=== PATIENT | male | born 1950 | race Caucasian/White ===

== ENCOUNTER → 2020-05-25 07:47 | Outpatient (BNVA) | payer MEDICARE, SELFPAY | PROVIDERS: PCP Family Medicine; Referring Provider Family Medicine; Visit Provider Student in an Organized Health Care Education/Training Program | DX: Z76.89 Persons encountering health services in other specified circumstances (principal) ==

== ENCOUNTER 2024-05-19 13:32 | Outpatient (AMB) | payer BC, MEDICARE, SELFPAY ==
[2024-05-19 13:33] VITALS: BP 120/72; PULSE 68; BMI 29.2
--- NOTE | 2024-05-19 13:33 | MHC.OFFVIS ---
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 Intake Note: New dx PVC's getting palpitations at night and low heart rate at night in the 40's Client Service And Consulting Manager Required: No Allergies amoxicillin [From Augmentin] Allergy (Verified 05/25/20 08:02) Swelling clavulanic acid [From Augmentin] Allergy (Verified 05/25/20 08:02) Swelling montelukast [From Singulair] Allergy (Verified 05/25/20 08:02) itching Medication List - Last Reconciled 05/19/24 by Hood Villa MD budesonide-formoterol 160-4.5 mcg/actuation (Symbicort) 2 puffs inhalation BID cholecalciferol (vitamin D3) 50 mcg PO DAILY eszopiclone (Lunesta) 1 mg PO BEDTIME fexofenadine (Michelle Allergy) 180 mg PO DAILY ketotifen fumarate 0.025%(0.035%) (Allergy Eye (ketotifen)) 1 drp ophthalmic (eye) BID multivitamin 1 tab PO DAILY omeprazole 10 mg PO DAILY tamsulosin 0.4 mg PO BEDTIME HPI Comments Details: Thank you for referring Diana in cardiology consultation today for abnormal EKG consistent with PVCs and enlarged thoracic aorta. Markedly 73-year-old pleasant man with no significant past history of hypertension, diabetes, vascular disease. He said he was recently diagnose during workup to have enlarged thoracic aorta up to 4 cm. However reviewing his chart back he says this has gone back up to 2015. More or less the enlarged thoracic aorta has remained stable. He did see Dr. Palencia and [facility] from Cardiothoracic Surgical perspective for evaluation of ascending aortic enlargement. He was told conservative follow-up at this point in time. He denies any cardiac symptoms but since been told about this he has become lumbar anxious. He has been noticing some palpitations in his chest. Occasionally feels chest pain but this is not exertional in nature. During 1 of the endoscopies he was told he had irregular heartbeat and was advised to seek a cardiac opinion. He is not sure if he was had PVCs in the past. However since been told he has become more aware of this as well. He denies any prior coronary artery disease. He had echocardiogram done recently had shown preserved LV ejection fraction without any major valvular abnormalities. He denies any lightheadedness, syncope. Denies any heart failure symptoms. [facility] Surgical History History of cholecystectomy Family History Mother Diabetes Hypertension Father Diabetes Hypertension Heart disease Social History Household Members: Spouse Are you a primary career placement specialist to a significant other at home: No Do you presently have visiting nurse or other home services: No 75 years or older and lives alone: No Alcohol intake: former Year quit: Quit Review of Systems Const Denies chills, Denies daytime sleepiness, Denies fatigue, Denies fever(s), Denies frequent falls, Denies poor appetite, Denies snoring, Denies stops breathing during sleep, Denies weakness, Denies weight gain and Denies weight loss Eyes Denies loss of vision ENT Denies dizziness and Denies hearing loss Card Denies chest pain, Denies claudication, Denies leg edema, Denies lightheadedness, Denies palpitations, Denies dyspnea, Denies dyspnea on exertion and Denies orthopnea Resp Denies cough, Denies excessive phlegm production, Denies dyspnea, Denies dyspnea on exertion, Denies snoring and Denies wheezing GI Denies abdominal pain, Denies hematochezia, Denies change in bowel habits, Denies nausea and Denies vomiting Denies dysuria and Denies urinary frequency Musc Denies arthralgias, Denies muscle weakness, Denies numbness and Denies other (frequent falls) Skin/Breast Denies nail changes and Denies rash Neuro Denies Abnormal speech present, Denies dizziness, Denies frequent falls, Denies loss of vision, Denies memory loss, Denies numbness and Denies weakness Psych Denies depression and Denies memory loss Endo Denies fatigue and Denies palpitations Rusty/Lymph Reports easy bruising and Reports other (anemia) Aller/Immun Denies wheezing Physical Exam Vital Signs: Last Vital Signs Pulse 68 05/19/24 13:33 BP 120/72 05/19/24 13:33 BMI result Body Mass Index 29.2 Const General: cooperative, comfortable, no acute distress, alert, awake and Physically active Nutritional Appearance: overweight Orientation/consciousness: patient oriented x3 Limitations: no limitations HEENT Head: Yes normocephalic and Yes atraumatic Neck Neck: Yes trachea midline, Yes supple and Yes no JVD Resp Effort & Inspection: normal respiratory effort Auscultation: clear to auscultation bilaterally Cardio Jugular venous distension: no JVD Palpation: normal PMI Rate: regular rate Rhythm: abnormal rhythm with ectopic beats Heart sounds: S1 normal heart sound present, S2 normal heart sound present, no click, no gallops, no murmurs and no rubs GI Auscultation: normal bowel sounds Skin General skin exam: no rashes or lesions noted Neuro General: patient oriented x3 and no focal motor deficits Speech: No Abnormal speech present Psych Appearance: grossly normal Assessment & Plan Assessment & Plan (1) PVCs (premature ventricular contractions): Code(s): I49.3 - Ventricular premature depolarization Category: Medical Plan: Patient maybe getting symptomatic PVCs now ever since been told that he had irregular heartbeat. However he is noticing that sometimes his heart rate is on the slow side. He also has atypical chest pain. His echocardiogram shows normal LV ejection fraction. Although given his age I would like to rule out myocardial ischemia as this could also present with symptoms and signs of PVCs. This was discussed with him. Also suggest a Holter monitor to assess for frequency of PVCs. If he has normal structure of the heart with less than 10% frequency of PVCs would probably manage it without any pharmacotherapy given his baseline bradycardia. Holter monitor will also have but overall baseline and average heart rate through the 48 hours. He understands management well. Advised stress mitigation strategies. Avoidance of stimulants was discussed. Further treatment based on the finding of the test results. (2) Enlarged thoracic aorta: Code(s): I77.89 - Other specified disorders of arteries and arterioles Category: Medical Plan: Mildly enlarged thoracic aorta which seems to have remained stable for many years. Agree with Cardiothoracic surgery as to conservative management at this point time. Advised to avoid sudden strenuous isometric exercise. He understands agrees. Follow-up echocardiogram on a yearly basis. Consider lipid modification with target goal LDL less than 100 mg/dL. Blood pressure is currently well optimized. Will follow up in the clinic in 1 year's time, sooner p.r.n.. Thank you for allowing me to partake in his care Orders: Orders CA stress test Today I49.3 - Ventricular premature depolarization NM cardiolite stress test 2 Weeks I49.3 - Ventricular premature depolarization, R07.9 - Chest pain, unspecified ECG holter monitor 48 hour Today I49.3 - Ventricular premature depolarization Coding Level of Care Code New Pt Level 4 (37949) Diagnoses PVCs (premature ventricular contractions) I49.3 Enlarged thoracic aorta I77.89
== END 2024-05-19 14:19 | disposition home or self-care (01) ==
PROVIDERS: Visit Provider Internal Medicine Cardiovascular Disease
DX: I49.3 Ventricular premature depolarization (principal); I77.89 Other specified disorders of arteries and arterioles
CPT/HCPCS: 99204

== ENCOUNTER → 2024-05-19 13:32 | Outpatient (BNVA) | payer OTHER, MEDICARE, SELFPAY | PROVIDERS: Visit Provider Internal Medicine Cardiovascular Disease ==

== ENCOUNTER → 2024-06-17 12:35 | Outpatient (REF) | payer BC, MEDICARE, SELFPAY ==
--- NOTE | 2024-06-17 12:37 | HM_ITS ---
Conclusion: 1. Patient was monitored for total period of 5 days and 21 hours 2. Baseline was normal sinus rhythm with average heart of 59 beats per minute 3. Frequent sinus bradycardia noted with 51% of time heart rate below 60 beats per minute with no significant pauses 4. Frequent mostly isolated PVCs noted with total burden of 4.4% 5. Frequent isolated PACs noted with total burden of 1.4% 6. Patient marked 4 events with symptoms of palpitations correlated with isolated PACs and PVCs MTDD
== END ==
LOC: HO.CARD 12:35
PROVIDERS: PCP Family Medicine; Visit Provider Internal Medicine Cardiovascular Disease
DX: I49.3 Ventricular premature depolarization (principal)
CPT/HCPCS: 93225

== ENCOUNTER → 2024-06-17 12:37 | Outpatient (BNV) | payer BC, MEDICARE, SELFPAY | PROVIDERS: PCP Family Medicine; Visit Provider Internal Medicine Cardiovascular Disease | DX: I49.1 Atrial premature depolarization (principal); I49.3 Ventricular premature depolarization | CPT/HCPCS: 93244 ==

== ENCOUNTER → 2024-07-28 08:09 | Outpatient (REF) | payer BC, MEDICARE, SELFPAY ==
--- NOTE | ~2024-07-28 | NM_ITS ---
EXERCISE MYOCARDIAL PERFUSION STUDY INDICATION: Chest pain to evaluate for myocardial ischemia TECHNIQUE: The patient was brought in for an exercise perfusion study on 07/28/2024. Patient performed exercise as per Eliseo protocol and was injected 25 mCi of sestamibi once target heart rate was achieved. Images were obtained using the SPECT gamma camera interlaced with the gating device. Images were obtained in supine position. Resting perfusion study was performed on 07/29/2024. Patient was administered 25 mCi of sestamibi intravenously at rest. Images were then obtained in supine position. Images obtained without without CT attenuation. Total DLP 102 mGy-cm. Images were processed with the software and compared side to side in short axis, horizontal long axis and vertical long axis views. FINDINGS: Raw images were reviewed The stress perfusion study showed nonattenuated images show mildly reduced uptake in the basal inferior mid inferior wall of the LV myocardium. Remainder of the LV myocardium is normally perfused. Attenuated corrected images show mildly reduced uptake in the apex of the LV myocardium. The gated study shows normal LV systolic function with calculated LVEF of 60%. LV cavity is normal in size. The gated study shows normal systolic wall thickening and contraction of segments. Resting study shows nontender images show improved uptake in the basal and mid inferior wall of the LV myocardium. Attenuated corrected images show mildly reduced uptake in the apex of the LV myocardium.. Gating at rest reveals normal systolic wall motion with ejection fraction at 58%. The findings are consistent with equivocal for mild intensity ischemia basal inferior wall. NM/NM cardiolite stress test IMPRESSION: 1. Myocardial perfusion imaging study shows equivoval basal and mid inferior wall ischemia of mild intensity in RCA territory. 2. Gated LVEF is 60%. 3. Transient ischemic dilatation not present. EKG revealed positive for ischemia. Electronically signed by: Hood Villa MD 07/30/2024 08:20 AM [facility]
--- NOTE | 2024-07-28 08:12 | CA_ITS ---
Acquisition Time: 2024-07-28 08:46:23 Total Exercise Time: 00:07:25 Test Indications: CP, PVC'S Medications: SEE H Protocol: MATTY Max HR: 150 BPM 78% of Pred: 191 BPM Max BP: 160/070 mmHG Max Work Load: 7.1 METS Exercise stress test with exercise 7 min 25 sec of Matty protocol ( stage 2 held) achieving 101% MPHR, with reports of sever SOB, no chest discomfort, with isolated PVCs and PACs, with normotensive reponse to exercise. Downward sloping ST depression inferiorly and laterally, gradually improving in recovery, meeting criteria for ischemia. In recovery, SOB resolved. Nuclear images pending. Test reviewed with Dr. Villa. Referred By: Hood Villa Overread By: GENESIS LEE
--- OUTSIDE RECORDS SUMMARY | 2024-07-29 18:44 | XMS_ITS | Continuity of Care Document ---
Author Organization [facility] Abilio lt Address [address] [place] [address]- Care Team Providers Care Tosser Name Role Phone Ritchie CUI, Gil Langston Primary Care Physician [place] [facility] [place]11[place]24 - 07/11/24 [facility] [address] [place] [address]- Encounter Type: Triage Allergies, Adverse Reactions, Alerts Substance Criticality Severity Reaction Reaction Severity Status Augmentin Active Other Environmental Allergy 1 Active 1pollen, trees, molds and dust. Immunizations Given and Recorded Vaccine Date Status Refusal Reason SARS-CoV-2(COVID-19)mRNA-LNP vac([id number]) 04/18/24 Recorded SARS-CoV-2(COVID-19)mRNA-LNP vac([id number]) 06/24/23 Recorded influenza virus vaccine, inactivated 04/12/24 Juan Carlos rded influenza virus vaccine, inactivated 04/26/22 Juan Carlos rded influenza virus vaccine, inactivated 05/01/21 Juan Carlos rded influenza virus vaccine, inactivated 04/08/20 Juan Carlos rded influenza virus vaccine, inactivated 05/19/19 Juan Carlos rded influenza virus vaccine, inactivated 1 06/19/18 Re corded influenza virus vaccine, inactivated 06/09/18 Juan Carlos rded influenza virus vaccine, inactivated 05/14/17 Juan Carlos rded influenza virus vaccine, inactivated 04/30/16 Juan Carlos rded Influenza Virus Vaccine (oldterm) 2 10/4/23 Recor ded Influenza Virus Vaccine (oldterm) 04/19/19 Recorde d RSV vaccine preF3, recombinant 04/30/23 Recorded [id number] 12y+ bivalent booster vax 05/17/22 Recorded SARS-CoV-2 mRNA ([id number]) vax 11/15/21 Recorded SARS-CoV-2 (COVID-19) mRNA BNT-162b2 vac 05/17/21 Recorded SARS-CoV-2 (COVID-19) mRNA BNT-162b2 vac 11/13/20 Recorded SARS-CoV-2 (COVID-19) mRNA BNT-162b2 vac 10/23/20 Recorded tetanus/diphtheria/pertussis, acel(Tdap) 04/07/20 Recorded tetanus/diphtheria/pertussis, acel(Tdap) 3 08/19/15 Recorded pneumococcal 23-valent vaccine 08/17/19 Recorded pneumococcal 23-valent vaccine 4 08/19/13 Recorded zoster vaccine, inactivated 07/21/19 Recorded zoster vaccine, inactivated 07/21/19 Recorded zoster vaccine, inactivated 05/19/19 Recorded Zoster Vaccine Live 04/19/19 Recorded Zoster Vaccine Live 09/30/13 Recorded pneumococcal 13-valent vaccine 08/07/18 Recorded pneumococcal 13-valent vaccine 01/25/17 Recorded pneumococcal 13-valent vaccine 5 08/19/14 Recorded Zostavax (oldterm) 6 08/19/12 Recorded 1Location History: [facility] 2Result Comment: [facility] 3Location History: Dr. Jaramillo 4Location History: Dr. Jaramillo 5Location History: Dr. Jaramillo 6Location History: Dr. Jaramillo Medications Albuterol (Eqv-ProAir HFA) 90 mcg/inh inhalation aerosol 1 puffs, Inhalation, Every 4 hours, PRN NEEDED FOR WHEEZING, j45.909, # 3 each, 3 Refills, Maintenance, 12/18/23 8:38:00 AM EDT, [facility]/pharmacy #[id number], 1 puffs Inhalation Every 4 hours,PRN: NEEDED FOR WHEEZING,Instr:j45.909, 170, cm, 09/18/23 7:44:00 EST, Height Start Date: 12/18/23 Status: Ordered Quantity: 3.0 Unit: each Repeat number: 4 Flomax 0.4 mg oral capsule 0.4 mg, 1, capsule, By Mouth, Daily, Refills 0, Maintenance, 05/29/23 3:05:00 PM EDT, Partial fill upon patient request if the prescription is for a schedule II opioid drug. Start Date: 05/29/23 Status: Ordered Repeat number: 1 fluticasone 50 mcg/inh nasal spray 1 sprays, Nares, Both, Daily, # 3 each, 1 Refills, Maintenance, 09/27/22 3:46:00 PM EST, [facility] [employer], 1 sprays Nares, Both Daily, 170, cm, 09/17/22 7:58:00 EST, Height Start Date: 09/27/22 Status: Ordered Quantity: 3.0 Unit: each Repeat number: 2 omeprazole 10 mg oral enteric coated capsule 1 capsule = 10 mg, By Mouth, Daily, sent to [facility] , # 90 capsule, 3 Refills, Maintenance, 11/28/23 7:44:00 PM EDT, EC Capsule, [employer], Partial fillupon patient request if the prescription is for a schedule II opioid drug., 170, cm, 09/18/23 7:44:00 EST, Height Start Date: 11/28/23 Status: Ordered Quantity: 90.0 Unit: capsule Repeat number: 4 Pataday Daily, 0 Refills, Maintenance, 12/05/22 1:51:00 PM EDT, Partial fill upon patient request if the prescription is for a schedule II opioid drug. Start Date: 12/05/22 Status: Ordered Repeat number: 1 PreserVision AREDS 2 oral capsule 1 capsule, By Mouth, 2 times a day, # 60 capsule, 0 Refills, Maintenance, 05/01/24 12:53:00 PM EDT, Capsule, Partial fill upon patient request if the prescription is for a schedule II opioid drug. Start Date: 05/01/24 Status: Ordered Quantity: 60.0 Unit: capsule Repeat number: 1 Spiriva Respimat 1.25 mcg/inh inhalation aerosol 2 puffs = 2.5 mcg, Inhalation, Daily, j45.40, # 3 each, 3 Refills, Maintenance, 12/23/23 10:25:00 AM EDT, Aerosol, [facility]/pharmacy #[id number], Partial fill upon patient request if the prescription is for a schedule II opioid drug., 170, cm, 09/18/23 7:44:00 EST, Height Start Date: 12/23/23 Status: Ordered Quantity: 3.0 Unit: each Repeat number: 4 Symbicort 160mcg/4.5mcg Inhaler 2, puffs, Inhalation, 2 times a day, j45.909, # 3 each, Refills 1, Tot. Refills 1, Maintenance, 03/03/24 12:47:00 PM EDT, Route to Pharmacy Electronically, [id number], [facility]/pharmacy #[id number], 170, cm, 09/18/23 7:44:00 EST, Height Start Date: 03/03/24 Status: Ordered Quantity: 3.0 Unit: each Repeat number: 2 Vitamin D3 = 2,000 units, By Mouth, Daily, 0 Refills, Maintenance, 03/21/17 8:22:12 AM EDT Start Date: 03/21/17 Status: Ordered Repeat number: 1 ZyrTEC 10 mg oral tablet 1 tablet = 10 mg, By Mouth, Daily, 0 Refills, Maintenance, 01/24/23 12:52:00 PM EDT, Partial fill upon patient request if the prescription is for a schedule II opioid drug. Start Date: 01/24/23 Status: Ordered Repeat number: 1 Problem List Condition Confirmation Course Effective Dates Status H ealth Status Informant Ascending aortic aneurysm Confirmed Active Asthma Confirmed Active Hepatic cirrhosis Confirmed Active GERD (gastroesophageal reflux disease) Confirmed Active Gout Confirmed Active Hx of multiple pulmonary nodules Confirmed Active Hyperlipidemia Confirmed Active Insomnia Confirmed Active Colon polyp Confirmed Active DM2 (diabetes mellitus, type 2) Confirmed Active Social History Social History Type Response Smoking Status Former smoker; Tobac co user in household: No; Other: started and quit in 1969 (only smoked for 6 months).; entered on: 03/01/16 Sex Sex Representation Male (finding) Patient Care team information Care Team Personnel Name: Gil Dugan MD Position: S Physician - Primary Care Member Role: PCP Address: [address] [place] [id number] Telecom: Care Team Related Persons Name: NADINE BARRETT Insurance Providers Guarantor name: JOSÉ BARRETT Health Plan Information #: 1 Payer: [employer] Member Number: NA Policy Number: NA Group Number: NA Health Plan Information #: 2 Payer: MEDICARE PART B OUTPT Member Number: NA Policy Number: NA Group Number: NA
--- OUTSIDE RECORDS SUMMARY | 2024-07-29 18:44 | XMS_ITS | Continuity of Care Document ---
Author Organization [facility] Address [address] [place] [id number]- Care Team Providers Care Visitor Services Specialist Name Role Phone Gil Dugan MD Primary Care Physician Encounter [facility] Date(s): 04/30/24 - 07/02/24 [facility] [address] [place] [address] Attending Physician: Sandra Stephens NP Referring Physician: Gil Dugan MD Encounter Type: Pre Office Visit Allergies, Adverse Reactions, Alerts Substance Criticality Severity Reaction Reaction Severity Status Other Environmental Allergy 1 Active Augmentin Active 1pollen, trees, molds and dust. Immunizations Given and Recorded Vaccine Date Status Refusal Reason SARS-CoV-2(COVID-19)mRNA-LNP vac([id number]) 04/18/24 Recorded SARS-CoV-2(COVID-19)mRNA-LNP vac([id number]) 06/24/23 Recorded influenza virus vaccine, inactivated 04/12/24 [...] Carlos rded Influenza Virus Vaccine (oldterm) 2 05/22/23 Recor ded Influenza Virus Vaccine (oldterm) 04/19/19 Recorde d RSV vaccine preF3, recombinant 04/30/23 Recorded [id number] 12y+ bivalent booster vax 05/17/22 Recorded SARS-CoV-2 mRNA ([id number]) vax 11/15/21 Recorded SARS-CoV-2 (COVID-19) mRNA BNT-162b2 [...] Zostavax (oldterm) 6 08/19/12 Recorded 1Location History: [facility] 2Result Comment: [facility] 3Location History: Dr. Jaramillo 4Location History: Dr. Jaramillo 5Location History: Dr. Jaramillo 6Location History: Dr. Jaramillo Medications Albuterol (Eqv-ProAir HFA) 90 mcg/inh inhalation aerosol 1 puffs, Inhalation, Every 4 hours, PRN NEEDED FOR WHEEZING, j45.909, # 3 each, 3 Refills, Maintenance, 12/18/23 8:38:00 AM EDT, [facility]/pharmacy #[id number], 1 puffs Inhalation Every 4 hours,PRN: [...] Refills, Maintenance, 09/27/22 3:46:00 PM EST, [facility] [employer], 1 sprays Nares, Both Daily, 170, cm, 09/17/22 7:58:00 EST, Height Start Date: 09/27/22 Status: Ordered Quantity: 3.0 Unit: each Repeat number: 2 omeprazole 10 mg oral enteric coated capsule 1 capsule = 10 mg, By Mouth, Daily, sent to [employer] , # 90 capsule, 3 Refills, Maintenance, 11/28/23 7:44:00 PM EDT, EC Capsule, [employer], Partial fillupon patient request if the prescription [...] Refills, Maintenance, 12/23/23 10:25:00 AM EDT, Aerosol, [facility]/pharmacy #[id number], Partial fill upon patient request if the prescription is for a schedule II opioid drug., 170, cm, 09/18/23 7:44:00 EST, Height Start Date: 12/23/23 Status: Ordered Quantity: 3.0 Unit: each Repeat number: 4 Symbicort 160mcg/4.5mcg Inhaler 2, puffs, Inhalation, 2 times a day, j45.909, # 3 each, Refills 1, Tot. Refills 1, Maintenance, 03/03/24 12:47:00 PM EDT, Route to Pharmacy Electronically, [id number], [facility]/pharmacy #[id number], 170, cm, 09/18/23 7:44:00 EST, Height [...] - Primary Care Member Role: PCP Address: [address] [place] [address]- Telecom: Care Team Related Persons Name: NADINE BARRETT Insurance Providers Guarantor name: JOSÉ NENA Health Plan Information #: 1 Payer: [place] Member Number: [id number] Policy Number: NA Group Number: NA Health Plan Information #: 2 Payer: MEDICARE PART B OUTPT Member Number: [id number] Policy Number: NA Group Number: NA
--- OUTSIDE RECORDS SUMMARY | 2024-07-29 18:44 | XMS_ITS | Continuity of Care Document ---
Author Organization [facility] Address [address] [place] [address]- [facility] Name Relationship Address Phone NADINE BARRETT spouse Unknown Unavailable NENA, NADINE A Personal Relationship Unknown Unav ailable NENA, NADINE spouse Unknown Unavailable NENA, NADINE Personal Relationship Unknown Unavai lable GOLD, NADINE Personal Relationship Unknown Unavai lable NENA, NADINE spouse Unknown Unavailable NENA, NADINE A Personal Relationship Unknown Unav ailable Care Team Providers Care Rigger Chief Name Role Phone Ritchie CUI, Gil Langston Primary Care Physician Encounter [facility] Date(s): 06/02/24 - 07/02/24 [facility] [address] [place] [address] Attending Physician: Eve Mays Admitting Physician: AdmtrEve Referring Physician: AdmtrEve Encounter Type: Triage Allergies, Adverse Reactions, Alerts Substance Criticality Severity Reaction Reaction Severity Status Augmentin Active Other Environmental Allergy 1 Active 1pollen, trees, molds and dust. Immunizations Given and Recorded Vaccine Date Status Refusal Reason SARS-CoV-2(COVID-19)mRNA-LNP vac([id number]) 04/18/24 Recorded SARS-CoV-2(COVID-19)mRNA-LNP vac([id number]) 06/24/23 Recorded influenza virus vaccine, inactivated 04/12/24 [...] d RSV vaccine preF3, recombinant 04/30/23 Recorded [id number] 12y+ bivalent booster vax 05/17/22 Recorded SARS-CoV-2 mRNA ([id number]) vax 11/15/21 Recorded SARS-CoV-2 (COVID-19) mRNA BNT-162b2 [...] Zostavax (oldterm) 6 08/19/12 Recorded 1Location History: [facility] 2Result Comment: [facility] 3Location History: Dr. Jaramillo 4Location History: Dr. Jaramillo 5Location History: Dr. Jaramillo 6Location History: Dr. Jaramillo Medications Albuterol (Eqv-ProAir HFA) 90 mcg/inh inhalation aerosol 1 puffs, Inhalation, Every 4 hours, PRN NEEDED FOR WHEEZING, j45.909, # 3 each, 3 Refills, Maintenance, 12/18/23 8:38:00 AM EDT, [facility]/pharmacy #[id number], 1 puffs Inhalation Every 4 hours,PRN: [...] Refills, Maintenance, 09/27/22 3:46:00 PM EST, [facility], 1 sprays Nares, Both Daily, 170, cm, 09/17/22 7:58:00 EST, Height Start Date: 09/27/22 Status: Ordered Quantity: 3.0 Unit: each Repeat number: 2 omeprazole 10 mg oral enteric coated capsule 1 capsule = 10 mg, By Mouth, Daily, sent to [facility] , # 90 capsule, 3 Refills, Maintenance, 11/28/23 7:44:00 PM EDT, EC Capsule, [facility], Partial fillupon patient request if the prescription [...] Maintenance, 12/23/23 10:25:00 AM EDT, Aerosol, [facility]/pharmacy #[id number], Partial fill upon patient request if the prescription is for a schedule II opioid drug., 170, cm, 09/18/23 7:44:00 EST, Height Start Date: 12/23/23 Status: Ordered Quantity: 3.0 Unit: each Repeat number: 4 Symbicort 160mcg/4.5mcg Inhaler 2, puffs, Inhalation, 2 times a day, j45.909, # 3 each, Refills 1, Tot. Refills 1, Maintenance, 03/03/24 12:47:00 PM EDT, Route to Pharmacy Electronically, [id number], [facility]/pharmacy #[id number], 170, cm, 09/18/23 7:44:00 EST, Height [...] - Primary Care Member Role: PCP Address: [address] [place] [address]- Telecom: Care Team Related Persons Name: NADINE BARRETT Insurance Providers Guarantor name: JOSÉ BARRETT Health Plan Information #: 1 Payer: BLUE C[employer] ELECT Member Number: NA Policy Number: NA Group Number: NA Health Plan Information #: 2 Payer: MEDICARE PART B OUTPT Member Number: NA Policy Number: NA Group Number: NA
== END ==
LOC: HO.CARD 08:09
PROVIDERS: PCP Family Medicine; Visit Provider Internal Medicine Cardiovascular Disease
DX: R07.9 Chest pain, unspecified (principal); I49.3 Ventricular premature depolarization
CPT/HCPCS: 78452; 93017; A9500

== ENCOUNTER → 2024-07-28 08:12 | Outpatient (BNV) | payer BC, MEDICARE, SELFPAY | PROVIDERS: PCP Family Medicine; Visit Provider Nurse Practitioner Family | DX: R06.02 Shortness of breath (principal); I49.3 Ventricular premature depolarization; I49.1 Atrial premature depolarization | CPT/HCPCS: 78452; 93016; 93018 ==

== ENCOUNTER 2024-09-22 10:15 | Outpatient (REF) | payer BC, MEDICARE, SELFPAY ==
--- OUTSIDE RECORDS SUMMARY | 2024-09-22 11:02 | XMS_ITS | Clinical Summary ---
Author Organization [facility] Address [address] [place] [address] Phone Care Team Providers Care Senior Attorney Name Role Phone Gil Dugan MD Primary Care Provider [phone]- [phone] Encounters Date Type Department Care Team Description 09/07/2024 Telephone Gastroenterology - [address] [facility] [address] [facility] [address] [place] [phone] Martin Funez MD 07/24/2024 Lab Requisition [facility] [address] [facility] [place] [phone] Juan Escobar PA Benign essential microscopic hematuria from Last 3 Months Social History Tobacco Use Types Packs/Day Years Used Date Smoking Tobacco: Never Assessed Sex and Gender Information Value Date Recorded Sex Assigned at Male 06/05/2024 11:19 PM EDT Gender Identity Male 06/05/2024 11:19 PM EDT Sexual Orientation Straight 06/05/2024 11 :19 PM EDT Job Start Date Occupation Industry Not on file Not on file Not on file Plan of Treatment Upcoming Encounters Date Type Department Care Team (Late st Contact Info) Description 11/11/2024 8:00 AM EDT Office Visit Gastroenterology - [address] [facility] [facility] [address] [place] [phone] Martin Funez MD [address] [place] [phone] Health Maintenance Due Date Last Done Comments Pneumococcal Vaccine: 65+ Ye ars (1 of 2 - PCV) 10/27/1957 DTaP,Tdap,and Td Vaccines (1 - Tdap) 10/27/1970 Zoster Vaccines (1 of 2) 10/27/2001 COVID-19 Vaccine (1 - 2023-2 5 season) 2024 Influenza Vaccine (#1) 2024 Abdominal Aortic Aneurysm (A AA) Screen 05/26/2024 Cholesterol Screening (Lipid Panel) 05/26/2024 Colorectal Cancer Screening: Colonoscopy 05/26/2024 Depression Screening 05/26/2024 Falls Risk Assessment 05/26/2024 Hepatitis C Screening 05/26/2024 Medicare Annual Wellness Visit 05/26/2024 Social Influencers of Health Screening 05/26/2024 RSV Immunization Patients 60 + Years Old (1 - 1-dose 75+ series) 10/27/2026 HIB Vaccines Aged Out No longer eligi ble based on patient's age to complete this topic HPV Vaccines Aged Out No longer eligi ble based on patient's age to complete this topic Hepatitis A Vaccines Aged Out No long er eligible based on patient's age to complete this topic Hepatitis B Vaccines Aged Out No long er eligible based on patient's age to complete this topic IPV Vaccines Aged Out No longer eligi ble based on patient's age to complete this topic MMR Vaccines Aged Out No longer eligi ble based on patient's age to complete this topic Meningococcal ACWY Vaccine Aged Out N o longer eligible based on patient's age to complete this topic RSV Immunization Patients Un syl 20 months Aged Out No longer eligible b ased on patient's age to complete this topic Varicella Vaccines Aged Out No longer eligible based on patient's age to complete this topic Procedures Procedure Name Priority Date/Time Associated Diagnosis Comments AP OUTSIDE CONSULT Routine 07/20/2024 12 :00 AM EST Benign essential microscopic hematuria from Last 3 Months Results * Anatomic pathology outside consult (07/20/2024 12:00 AM EST) Final Diagnosis Urine, Voided: Negative for high-grade urothelial carcinoma. Scant urothelial cellularity. 08/07/2024 3:34 PM EST [facility] Clinical Information [id number] Urine w/reflex [facility]ro[facility]ysion. 08/07/2024 3:34 PM EST [facility] Gross Description A. Urine, Voided, : [id number] RECD 1 TP CYTO 08/07/2024 3:34 PM EST [facility] Disclaimer Unless otherwise specified, all tissue is 10% NB formalin fixed and paraffin embedded. Technical pathology services provided by [facility] [address] [facility] [address] [place] [address] (CLIA #[id number]/S jhon Pierre MD, Grief Counsellor) 08/07/2024 3:34 PM EST [facility] Tissue Urine specimen from urethra / Unknown 07/20/2024 07/24/2024 1:43 PM EST Juan ENNIS LAB PATHOLOGY ORDERABLES [facility] [address] [place] [address], from Last 3 Months Care Teams Senior Attorney Relationship Specialty Start Date End Date Gil Dugan MD [facility] [address] [place] [phone] PCP - General Family Medicine 09/07/24
--- OUTSIDE RECORDS SUMMARY | 2024-09-22 11:02 | XMS_ITS | Continuity of Care Document ---
Author Organization [facility] Address [address] [place] [address]- Care Team Providers Care Automobile Body Repairer Name Role Phone Gil Dugan MD [id number] [address] [place] [address]- Encounter Diagnosis Screening for colorectal cancer(Discharge Diagnosis) - 09/14/24 Frequent PVCs(Discharge Diagnosis) - 09/14/24 Ascending aortic aneurysm(Discharge Diagnosis) - 09/14/24 DM2 (diabetes mellitus, type 2)(Discharge Diagnosis) - 09/14/24 Insomnia(Discharge Diagnosis) - 09/14/24 Attending Physician: Gil Dugan MD Referring Physician: Gil Dugan MD Encounter Type: Office Visit Allergies, Adverse Reactions, Alerts Substance Criticality Severity Reaction Reaction Severity Status Other Environmental Allergy 1 Active Augmentin Active 1pollen, trees, molds and dust. Immunizations Given and Recorded Vaccine Date Status Refusal Reason SARS-CoV-2(COVID-19)mRNA-LNP vac([id number]) 04/18/24 Recorded SARS-CoV-2(COVID-19)mRNA-LNP vac([id number]) 06/24/23 Recorded influenza virus vaccine, inactivated 04/12/24 [...] d RSV vaccine preF3, recombinant 04/30/23 Recorded [id number] 12y+ bivalent booster vax 05/17/22 Recorded SARS-CoV-2 mRNA (mpvwkmz-[id number]) vax 11/15/21 Recorded SARS-CoV-2 (COVID-19) mRNA BNT-162b2 [...] Zostavax (oldterm) 6 08/19/12 Recorded 1Location History: [facility] 2Result Comment: [facility] 3Location History: Dr. Jaramillo 4Location History: Dr. Jaramillo 5Location History: Dr. Jaramillo 6Location History: Dr. Jaramillo Medications Albuterol (Eqv-ProAir HFA) 90 mcg/inh inhalation aerosol 1 puffs, Inhalation, Every 4 hours, PRN NEEDED FOR WHEEZING, j45.909, # 3 each, 3 Refills, Maintenance, 12/18/23 8:38:00 AM EDT, [facility]/pharmacy #[id number], 1 puffs Inhalation Every 4 hours,PRN: NEEDED FOR WHEEZING,Instr:j45.909, 170, cm, 09/18/23 7:44:00 EST, Height Start Date: 12/18/23 Status: Ordered Quantity: 3.0 Unit: each Repeat number: 4 eszopiclone 2 mg oral tablet 1 tablet, By Mouth, Daily at bedtime, PRN NEEDED FOR SLEEP, # 30 tablet, 5 Refills, Maintenance,09/14/24 9:23:00 AM EST Start Date: 09/14/24 Status: Ordered Quantity: 30.0 Unit: tablet Repeat number: 6 Flomax 0.4 mg oral capsule 0.4 mg, 1, capsule, By Mouth, Daily, Refills 0, Maintenance, 05/29/23 3:05:00 PM EDT, Partial fill upon patient request if the prescription is for a schedule II opioid drug. Start Date: 05/29/23 Status: Ordered Repeat number: 1 omeprazole 10 mg oral enteric coated capsule 1 capsule = 10 mg, By Mouth, Daily, sent to [facility] , # 90 capsule, 3 Refills, Maintenance, 11/28/23 7:44:00 PM EDT, EC Capsule, [facility], Partial fillupon patient request if the prescription [...] Refills, Maintenance, 12/23/23 10:25:00 AM EDT, Aerosol, [facility]/pharmacy #[id number], Partial fill upon patient request if the prescription is for a schedule II opioid drug., 170, cm, 09/18/23 7:44:00 EST, Height Start Date: 12/23/23 Status: Ordered Quantity: 3.0 Unit: each Repeat number: 4 Symbicort 160mcg/4.5mcg Inhaler 2, puffs, Inhalation, 2 times a day, j45.909, # 3 each, Refills 3, Tot. Refills 3, Maintenance, 08/28/24 9:53:00 AM EST, Route to Pharmacy Electronically, [id number], [facility]/pharmacy #[id number], 165.7, cm, 05/20/24 11:19:00 EDT, Height Start Date: 08/28/24 Status: Ordered Quantity: 3.0 Unit: each Repeat number: 4 Vitamin D3 = 2,000 units, By Mouth, [...] Active Hyperlipidemia Confirmed Active Insomnia Confirmed Active Obese class I Confirmed Active Colon polyp Confirmed Active DM2 (diabetes mellitus, type 2) Confirmed Active Diagnosis Diagnosis Type Effective Dates Health Status Clinical Service Informant Screening for colorectal cancer Discharge Diagnosis 09/14/24 Frequent PVCs Discharge Diagnosis 09/14/24 Ascending aortic aneurysm Discharge Diagnosis 09/14/24 DM2 (diabetes mellitus, type 2) Discharge Diagnosis 09/14/24 Insomnia Discharge Diagnosis 09/14/24 Vital Signs Most recent to oldest [Reference Range]: 1 2 Height 165.7 cm (09/14/24 10:14 AM) 165.7 cm (09/14/24 10:01 AM) Weight 82.6 kg (09/14/24 10:01 AM) Oxygen Saturation [94-100 %] 97 % (09/14/24 10:01 AM) Pulse Rate [55-90 bpm] 62 bpm (09/14/24 10:01 AM) Body Mass Index [18.5-24.99 kg/m2] 30.08 kg/m2 *>HHI* (09/14/24 10:01 AM) Blood Pressure [90-138/55-84 mm Hg] 145/ 65mm Hg *H* (09/14/24 10:14 AM) 158/66mm Hg *H* (09/14/24 10:01 AM) Mode of Delivery (Oxygen) Room air (09/14/24 10:01 AM) Blood pressure sites Arm, right (09/14/24 10:14 AM) Arm, left (09/14/24 10:01 AM) Weight Obtained Via Standing scale (09/14/24 10:01 AM) Social History Social History Type Response Smoking Status Former smoker; Tobac co user in household: No; Other: started and quit in 1969 (only smoked for 6 months).; entered on: 03/01/16 Sex Sex Representation Male (finding) Note * Selena Merritt: PERFORM Event Display: Patient Education/Instruction Authored Date: [id number] Ambulatory Adult Visit Summary [facility] [facility] [address] [place] [address] Name: JOSÉ BARRETT : 1950?? Visit: 09/14/2024 09:45?? Ambulatory Visit Instructions ?? Your Care Team Primary Care Provider Gil Dugan MD? This Visit Provider Gil Dugan MD Your Diagnosis Screening for colorectal cancer Vitals Signs Pulse Rate: 62 bpm Height: 165.7 cm Systolic Blood Pressure:??145 mm Hg??High Weight: 82.6 kg Diastolic Blood Pressure: 65 mm Hg Body Mass Index:??30.08 kg/m2??Critical Oxygen Saturation: 97 % Body surface area: 1.95 What to do next Scheduled Follow-Up Appointments Saturday 8:00 AM EST ?? Where: [facility] [address] [address]- Status: Pending Medications The list below reflects the information in our records and provided by you today along with any changes made during this visit. Please continue your medications until treatment is completed or stopped by your provider. If this is different from the information you have or there are other questions,please contact the prescribing provider. What How Much When Instructions Unchanged Albuterol (Albuterol (Eqv-ProAir HFA) 90 mcg/ inh inhalation aerosol) 1 puff(s) Inhalation Every 4 hours as needed for NEEDED FOR WHEEZING j45.909 ?? Unchanged Budesonide-Formoterol (Symbicort 160mcg/ 4.5mcg Inhaler) 2 puff(s) Inhalation Twice a day j45.909 ?? Unchanged Cetirizine (ZyrTEC 10 mg oral tablet) 1 tab(s) Oral Daily Unchanged Cholecalciferol (Vitamin D3) 2,000 unit(s) Oral Daily Unchanged Eszopiclone (eszopiclone 2 mg oral tablet) 1 tab(s) Oral Daily at Bedtime as needed for NEEDED FOR SLEEP Printed Prescription Unchanged Multivitamin With Minerals (PreserVision AREDS 2 oral capsule) 1 capsule Oral Twice a day Unchanged Olopatadine Ophthalmic (Pataday) Daily Unchanged Omeprazole (omeprazole 10 mg oral enteric coated capsule) 1 capsule Oral Daily sent to [facility] ?? Unchanged Tamsulosin (Flomax 0.4 mg oral capsule) 1 capsule Oral Daily Unchanged Tiotropium (Spiriva Respimat 1.25 mcg/ inh inhalation aerosol) 2 puff(s) Inhalation Daily j45.40 ? What How Much When Comments Stop Taking Fluticasone Nasal (fluticasone 50 mcg/ inh nasal spray) 1 spray(s) Nares, Both Daily Medications and Immunizations Administered Medications Given During Visit No medications given during this visit.?? Allergies (NKA means No Known Allergies) Augmentin Other Environmental Allergy Common Emergency Awareness Tips IS IT A STROKE? Act FAST and Check for these signs: FACE Does the face look uneven? ARM Does one arm drift down? SPEECH Does their speech sound strange? TIME Call at any sign of stroke ?? Heart Attack Signs Chest discomfort: Most heart attacks involve discomfort in the center of the chest and lasts more than a few minutes, or goes away and comes back. It can feel like uncomfortable pressure, squeezing, fullness or pain. Discomfort in upper body: Symptoms can include pain or discomfort in one or both arms, back, neck, jaw or stomach. Shortness of breath: With or without discomfort. Other signs: Breaking out in a cold sweat, nausea, or lightheaded. Remember, MINUTES DO MATTER. If you experience any of these heart attack warning signs, call to get immediate medical attention! ?? Smoking can increase your chances of developing chronic health problems and can cause harmful effects to other family members in your house. If you smoke, you are strongly encouraged to quit. Please call [facility] Link at [phone] or [phone] ([phone]) or log in to [email or web address] for referrals to smoking cessation programs. ?? The National Suicide Prevention Hotline is available 11/03 if you or someone you know needs to find a reason to keep living. By calling 2-806-448-Adcade (2589) you'll be connected to a skilled, trained counselor at a crisis center in your area. [facility] Portal You can view and manage your care through the patient portal or by using a health care scottie of your choosing. [employer] is a website that allows you to securely view your medical information including your hospital discharge summary, office visit summaries, medications and follow-up visits. You can also request appointments, renew medications, and request access to your medical information using a health care scottie of your choosing, or just ask a question. You can enroll at [email or web address] or register during your next office visit. [facility], in keeping with [facility] guidance, no longer requires face masks for staff, patientsor visitors in most situations. Similiar to time spent indoors at other locations, there is the chance that you were exposed to repiratory viruses during your time with us (such as flu or COVID-19). If you develop symptoms concerning for a viral respiratory infection, please seek testing (and treatment if indicated) from your medical provider or home test kit. ?? Disclaimer: The information provided is of a general nature and is intended to be used in conjunction with the recommendations and advice of your health care practitioner. Every effort has been made to ensure that the information provided is accurate and complete at the time it is provided to you however, as your needs change, or, as new information becomes available, different or additional instructions may be required. ?? If you have questions, please consult with your primary care provider or pharmacist, as appropriate. This information is not intended to serve as substitution for assessment and evaluation by a qualified health care provider. If you do not have a primary care provider, you may find a [facility] provider by calling [facility] at [phone]. Patient Care team information Care Team Personnel Name: Ritchie CUI, Gil Langston Position: [facility] Physician - Primary Care Member Role: PCP Address: [address] [place] [address] Telecom: Care Team Related Persons Name: NADINE BARRETT Insurance Providers Guarantor name: JOSÉ BARRETT Health Plan Information #: 1 Payer: BL[employer] ELECT Member Number: [id number] Policy Number: NA Group Number: [id number] Health Plan Information #: 2 Payer: MEDICARE PART B OUTPT Member Number: [id number] Policy Number: NA Group Number: NA
--- OUTSIDE RECORDS SUMMARY | 2024-09-22 11:02 | XMS_ITS | Encounter Summary ---
Author Organization [place] [address] Care Team Providers Care Suspect Artist Name Role Phone Gil Cuasey MD Primary Care Provider [phone]- [phone] Encounter Details Date Type Department Care Team (Late st Contact Info) Description 09/07/2024 Telephone Gastroenterology - [address] [place] [phone] Martin Funez MD [address] [place] [address] [place] [phone] Social History Tobacco Use Types Packs/Day Years Used Date Smoking Tobacco: Never Assessed Sex and Gender Information Value Date Recorded Sex Assigned at Male 06/05/2024 11:19 PM EDT Gender Identity Male 06/05/2024 11:19 PM EDT Sexual Orientation Straight 06/05/2024 11 :19 PM EDT Job Start Date Occupation Industry Not on file Not on file Not on file documented as of this encounter Progress Notes * Antonia Leyva - 09/08/2024 10:43 AM EST MEDICAL RECORDS REQUESTED HAVE BEEN FAXED. * Kelly Diggs - 09/07/2024 3:51 PM EST PT NEEDS ALL RECORDS FROM 2019 UNTIL NOW FAXED TO DR. CAUSEY'S OFFICE. FAX:[phone] documented in this encounter Plan of Treatment Upcoming Encounters Date Type Department Care Team (Late st Contact Info) Description 11/11/2024 8:00 AM EDT Office Visit Gastroenterology - [address] [place] [phone] Martin Funez MD [address] [place] [address] documented as of this encounter Visit Diagnoses Not on filedocumented in this encounter Care Teams Suspect Artist Relationship Specialty Start Date End Date Gil Causey MD [address] [place] [address] [address] [place] [phone] PCP - General Family Medicine 09/07/24 documented as of this encounter
--- OUTSIDE RECORDS SUMMARY | 2024-09-22 11:02 | XMS_ITS | Encounter Summary ---
Author Organization [place] [address] Care Team Providers Care Phlebotomist Name Role Phone Gil Dugan MD Primary Care Provider [phone]- [phone] Encounter Details Date Type Department Care Team (Late Contact Info) Description 07/24/[address] [facility] - Main Lab [address] [facility] [place] [phone] Juan Escobar PA 100 [facility] [address] [place] [phone] Benign essential microscopic hematuria Social History Tobacco Use Types Packs/Day Years Used Date Smoking Tobacco: Never Assessed Sex and Gender Information Value Date Recorded Sex Assigned at Male 06/05/2024 11:19 PM EDT Gender Identity Male 06/05/2024 11:19 PM EDT Sexual Orientation Straight 06/05/2024 11 :19 PM EDT Job Start Date Occupation Industry Not on file Not on file Not on file documented as of this encounter Plan of Treatment Upcoming Encounters Date Type Department Care Team (Late Contact Info) Description 11/11/2024 8:00 AM EDT Office Visit Gastroenterology - [address] [facility] [address] [place] [phone] Martin Funez MD 299 [facility] [address] [place], [place] [phone] documented as of this encounter Procedures Procedure Name Priority Date/Time Associated Diagnosis Comments AP OUTSIDE CONSULT Routine 07/20/2024 12 :00 AM EST Benign essential microscopic hematuria documented in this encounter Results * Anatomic pathology outside consult (07/20/2024 12:00 AM EST) Final Diagnosis Urine, Voided: Negative for high-grade urothelial carcinoma. Scant urothelial cellularity. 08/07/2024 3:34 PM EST [facility] Clinical Information [id number] Urine w/reflex UroVysion. 08/07/2024 3:34 PM EST [facility] Gross Description A. Urine, Voided, : [id number] RECD 1 TP CYTO 08/07/2024 3:34 PM EST [facility] Disclaimer Unless otherwise specified, all tissue is 10% NB formalin fixed and paraffin embedded. Technical pathology services provided by [facility] at [address], [place] [address] (CLIA #[id number]/S jhon Pierre MD, Sack Sorter) 08/07/2024 3:34 PM EST [facility] Tissue Urine specimen from urethra / Unknown 07/20/2024 07/24/2024 1:43 PM EST Juan ENNIS LAB PATHOLOGY ORDERABLES [facility] [address] [place] [address], documented in this encounter Visit Diagnoses Diagnosis Benign essential microscopic hematuria documented in this encounter Care Teams Phlebotomist Relationship Specialty Start Date End Date Gil Dugan MD [address] [place] [address] [address] [place] [address] PCP - General Family Medicine 09/07/24 documented as of this encounter
[2024-09-22 11:13] LABS: Anion Gap 10 (12-20); Blood Urea Nitrogen 19 mg/dL (9-16); Calcium 9.6 mg/dL (8.4-10.2); Carbon Dioxide 28 mmol/L (22-29); Chloride 107 mmol/L (96-108); Estimated Glomerular Filt Rate > 60; Glucose Random 82 mg/dL (60-115); Potassium 4.5 mmol/L (3.3-5.1); Sodium 140 mmol/L (135-145)
== END 2024-09-22 10:16 | disposition home or self-care (01) ==
LOC: HO.LAB 10:15
PROVIDERS: PCP Family Medicine; Visit Provider Internal Medicine Cardiovascular Disease
DX: I49.3 Ventricular premature depolarization (principal); I77.89 Other specified disorders of arteries and arterioles; R94.39 Abnormal result of other cardiovascular function study
CPT/HCPCS: 36415; 80048

== ENCOUNTER 2024-10-19 13:34 | Outpatient (AMB) | payer BC, MEDICARE, SELFPAY ==
[2024-10-19 13:38] VITALS: BP 120/74; PULSE 79; BMI 28.5
--- NOTE | 2024-10-19 13:38 | A.OFFVIS_ITS ---
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 Computer Science Professor: Applied Computer Science Professor Present Accompanied by: Spouse Allergies amoxicillin [From Augmentin] Allergy (Verified 05/25/20 08:02) Swelling clavulanic acid [From Augmentin] Allergy (Verified 05/25/20 08:02) Swelling montelukast [From Singulair] Allergy (Verified 05/25/20 08:02) itching Medication List - Last Reconciled 10/19/24 by Hood Villa MD aspirin (Ecotrin Low Strength) 81 mg PO DAILY budesonide-formoterol 160-4.5 mcg/actuation (Symbicort) 2 puffs inhalation BID cholecalciferol (vitamin D3) 50 mcg PO DAILY eszopiclone (Lunesta) 1 mg PO BEDTIME fexofenadine (Michelle Allergy) 180 mg PO DAILY ketotifen fumarate 0.025%(0.035%) (Allergy Eye (ketotifen)) 1 drp ophthalmic (eye) BID multivitamin 1 tab PO DAILY omeprazole 10 mg PO DAILY tamsulosin 0.4 mg PO BEDTIME HPI Comments Details: Delio comes for follow-up. After undergoing stress test which was mildly abnormal he underwent a coronary CTA which showed nonobstructive disease. Was started on low-dose aspirin therapy. Last week he had a seizure episode, and was noted to have significantly low sugars. This is under workup with Neurology. He denies any other cardiac symptoms at current point time. Denies any prolonged palpitation irregular heartbeat. No syncopal episodes. Denies any exertional chest pain. [facility] Surgical History History of cholecystectomy Family History Mother Diabetes Hypertension Father Diabetes Hypertension Heart disease Social History Household Members: Spouse Are you a primary care manager to a significant other at home: No Do you presently have visiting nurse or other home services: No 75 years or older and lives alone: No Alcohol intake: former Year quit: Quit Review of Systems Const Denies chills, Denies fatigue, Denies fever(s), Denies frequent falls, Denies weakness, Denies weight gain and Denies weight loss ENT Denies dizziness Card Denies chest pain, Denies leg edema, Denies lightheadedness, Denies palpitations, Denies dyspnea, Denies dyspnea on exertion, Denies orthopnea and Denies other (loss of consciousness) Resp Denies cough, Denies dyspnea and Denies dyspnea on exertion GI Denies hematochezia and Denies change in stool character Musc Denies abnormal gait, Denies muscle weakness, Denies numbness, Denies radiating pain into limb and Denies tingling Neuro Denies Abnormal speech present, Denies abnormal gait, Denies dizziness, Denies frequent falls, Denies numbness, Denies tingling and Denies weakness Endo Denies fatigue and Denies palpitations Physical Exam Vital Signs: Last Vital Signs Pulse 79 10/19/24 13:38 BP 120/74 10/19/24 13:38 BMI result Body Mass Index 28.5 Const General: cooperative, comfortable, no acute distress, alert, awake and Physically active Nutritional Appearance: overweight Orientation/consciousness: patient oriented x3 Limitations: no limitations HEENT Head: Yes normocephalic and Yes atraumatic Neck Neck: Yes trachea midline, Yes supple and Yes no JVD Resp Effort & Inspection: normal respiratory effort Auscultation: clear to auscultation bilaterally Cardio Jugular venous distension: no JVD Palpation: normal PMI Rate: regular rate Rhythm: abnormal rhythm with ectopic beats Heart sounds: S1 normal heart sound present, S2 normal heart sound present, no click, no gallops, no murmurs and no rubs GI Auscultation: normal bowel sounds Skin General skin exam: no rashes or lesions noted Neuro General: patient oriented x3 and no focal motor deficits Speech: No Abnormal speech present Psych Appearance: grossly normal Assessment & Plan Assessment & Plan (1) CAD (coronary artery disease): Comment: Nonobstructive by coronary CTA Code(s): I25.10 - Atherosclerotic heart disease of [place] coronary artery without angina pectoris Category: Medical Plan: Nonobstructive CAD by coronary CTA. Management of this was discussed including low-dose aspirin therapy. Also recommend aggressive lipid modification target goal LDL closer to 55 mg/dL. Will check his liver panel as well as recent lipid panel and decide dosing on his statin therapy. Either rosuvastatin or atorvastatin, high-intensity statin therapy should be pursued. Follow-up lipid panel in 3 months time. He is agreeable to management plan. (2) Enlarged thoracic aorta: Code(s): I77.89 - Other specified disorders of arteries and arterioles Category: Medical Plan: Mildly enlarged thoracic aorta. Follow-up by echocardiogram in 2 years time. No surgical interventions required at this point time. Management was discussed in details. Advised to avoid sudden strenuous isometric exercise. Continue aggressive vascular risk factor modification above. (3) PVCs (premature ventricular contractions): Code(s): I49.3 - Ventricular premature depolarization Category: Medical Plan: PVCs with overall the structural heart abnormality. Currently does not require further treatment. Benign nature of isolated PACs and sudden of normal structure of the heart was discussed. Understands and agrees. (4) Preoperative cardiovascular examination: Code(s): Z01.810 - Encounter for preprocedural cardiovascular examination Plan: Preoperative cardiovascular risk stratification for colonoscopy which is considered low risk procedure. Currently has nonobstructive coronary artery disease with no significant symptoms with good functional capacity. Has isolated PVCs with normal LV ejection fraction. At this point time he is optimized to undergo colonoscopy with low risk for perioperative cardiovascular morbidity mortality. Aspirin can be withheld for 5-7 days prior to the procedure. Will follow up in the clinic in 1 year's time, sooner p.r.n.. Thank you for allowing me to partake in his care Orders: Orders CA echo transthoracic complete 1 Year I77.89 - Other specified disorders of arteries and arterioles Coding Level of Care Code Est Pt Level 4 (46599) Complex EM visit Add On G2211 Diagnoses CAD (coronary artery disease) I25.10 Enlarged thoracic aorta I77.89 PVCs (premature ventricular contractions) I49.3 Preoperative cardiovascular examination Z01.810
--- OUTSIDE RECORDS SUMMARY | 2024-10-19 15:59 | XMS_ITS | Encounter Summary ---
Author Organization [facility] [employer] [place] [address] Care Team Providers Care Popcorn Vendor Name Role Phone Gil Dugan MD Primary Care Provider [phone]- [phone] Encounter Details Date Type Department Care Team (Late st Contact Info) Description 07/24/2024 Lab Requisition [facility] - Main Lab [address] [facility] [place] [place] [phone] Juan Escobar PA 100 [facility] [address] [place] [phone] Benign essential microscopic hematuria Social History Tobacco Use Types Packs/Day Years Used Date Smoking Tobacco: Never Assessed Sex and Gender Information Value Date Recorded Sex Assigned at Male 06/05/2024 11:19 PM EDT Legal Sex Male 6:10 PM EST Gender Identity Male 06/05/2024 11:19 PM EDT Sexual Orientation Straight 06/05/2024 11 :19 PM EDT documented as of this encounter Plan of Treatment Upcoming Encounters Date Type Department Care Team (Late st Contact Info) Description 11/11/2024 8:00 AM EDT Office Visit Gastroenterology - [address] [facility] [address] [place] [phone] Martin Funez MD 299 [facility] [address] [place], [place] [phone] documented as of this encounter Procedures Procedure Name Priority Date/Time Associated Diagnosis Comments AP OUTSIDE CONSULT Routine 07/20/2024 12 :00 AM EST Benign essential microscopic hematuria documented in this encounter Results * Anatomic pathology outside consult (07/20/2024 12:00 AM EST) Final Diagnosis Urine, Voided: Negative for high-grade urothelial carcinoma. Scant urothelial cellularity. 08/07/2024 3:34 PM EST [facility] Clinical Information [id number] Urine w/reflex UroVysion. 08/07/2024 3:34 PM EST [facility] Gross Description A. Urine, Voided, : [id number] RECD 1 TP CYTO 08/07/2024 3:34 PM EST [facility] Disclaimer Unless otherwise specified, all tissue is 10% NB formalin fixed and paraffin embedded. Technical pathology services provided by [facility] at [address], [place] [address] (CLIA #[id number]/S jhon Pierre MD, Nail Cutter) 08/07/2024 3:34 PM EST [facility] Tissue Urine specimen from urethra / Unknown 07/20/2024 07/24/2024 1:43 PM EST us Juan ENNIS LAB PATHOLOGY ORDERAB LES Final Result [facility] [address] [place] [address], documented in this encounter Visit Diagnoses Diagnosis Benign essential microscopic hematuria documented in this encounter Care Teams Popcorn Vendor Relationship Specialty Start Date End Date Gil Dugan MD [facility] [address] [place] [address] PCP - General Family Medicine 09/07/24 documented as of this encounter
--- OUTSIDE RECORDS SUMMARY | 2024-10-19 15:59 | XMS_ITS | Continuity of Care Document ---
Author Organization [facility] Address [address] [place] [address]- Care Team Providers Care Shell Worker Name Role Phone Ritchie CUI, Gil Lang[place] Primary Care Physician [phone] Encounter [facility] Date(s): 09/01/24 - 10/01/24 [facility] Adult [address] [place] [address]- Encounter Type: Triage Allergies, Adverse Reactions, Alerts Substance Criticality Severity Reaction Reaction Severity Status Other Environmental Allergy 1 Active Augmentin Active 1pollen, trees, molds and dust. Immunizations Given and Recorded Vaccine Date Status Refusal Reason SARS-CoV-2(COVID-19)mRNA-LNP vac([id number]) 04/18/24 Recorded SARS-CoV-2(COVID-19)mRNA-LNP vac(zaj445) 06/24/23 Recorded influenza virus vaccine, inactivated 04/12/24 [...] d RSV vaccine preF3, recombinant 04/30/23 Recorded [id number] 12y+ bivalent booster vax 05/17/22 Recorded SARS-CoV-2 mRNA ([id number]) vax 11/15/21 Recorded SARS-CoV-2 (COVID-19) mRNA BNT-162b2 [...] Zostavax (oldterm) 6 08/19/12 Recorded 1Location History: [facility] 2Result Comment: [facility] 3Location History: Dr. Jaramillo 4Location History: Dr. Jaramillo 5Location History: Dr. Jaramillo 6Location History: Dr. Jaramillo Medications Albuterol (Eqv-ProAir HFA) 90 mcg/inh inhalation aerosol 1 puffs, Inhalation, Every 4 hours, PRN NEEDED FOR WHEEZING, j45.909, # 3 each, 3 Refills, Maintenance, 12/18/23 8:38:00 AM EDT, [facility]/pharmacy #[id number], 1 puffs Inhalation [...] 10 mg, By Mouth, Daily, sent to [facility] , # 90 capsule, 3 Refills, Maintenance, 11/28/23 7:44:00 PM EDT, EC Capsule, [place], Partial fillupon patient request if the prescription [...] Refills, Maintenance, 12/23/23 10:25:00 AM EDT, Aerosol, [facility]/pharmacy #[id number], Partial fill upon patient request if the prescription is for a schedule II opioid drug., 170, cm, 09/18/23 7:44:00 EST, Height Start Date: 12/23/23 Status: Ordered Quantity: 3.0 Unit: each Repeat number: 4 Symbicort 160mcg/4.5mcg Inhaler 2, puffs, Inhalation, 2 times a day, j45.909, # 3 each, Refills 3, Tot. Refills 3, Maintenance, 08/28/24 9:53:00 AM EST, Route to Pharmacy Electronically, [id number], [facility]/pharmacy #[id number], 165.7, cm, 05/20/24 [...] household: No; Other: started and quit in 1970 (only smoked for 6 months).; entered on: 03/01/16 Sex Sex Representation Male (finding) Patient Care team information Care Team Personnel Name: Gil Dugan MD Position: S Physician - Primary Care Member Role: PCP Address: [address] [place] [id number] Telecom: Care Team Related Persons Name: NADINE BARRETT Insurance Providers Guarantor name: JOSÉ BARRETT Health Plan Information #: 1 Payer: [employer] Member Number: NA Policy Number: NA Group Number: NA Health Plan Information #: 2 Payer: MEDICARE PART B OUTPT Member Number: NA Policy Number: NA Group Number: NA
--- OUTSIDE RECORDS SUMMARY | 2024-10-19 16:00 | XMS_ITS | Continuity of Care Document ---
Author Organization [facility] ter Address [address] [place] [id number] Care Team Providers Care Shield Operator Name Role Phone Ritchie CUI, Gil Langston Primary Care Physician Encounter [facility] Date(s): 10/11/24 - 10/12/[address] [address]- Discharge Disposition: A-D/C Home Attending Physician: Viola Harvey MD, [place] Admitting Physician: Mcihael CUI, Enzo Medina Referring Physician: Not on Staff, Referring MD Encounter Type: Disch Obv Allergies, Adverse Reactions, Alerts Substance Criticality Severity Reaction Reaction Severity Status Augmentin Active Other Environmental Allergy 1 Active 1pollen, trees, molds and dust. Immunizations Given and Recorded Vaccine Date Status Refusal Reason SARS-CoV-2(COVID-19)mRNA-LNP vac([id number]) 04/18/24 Recorded SARS-CoV-2(COVID-19)mRNA-LNP vac([id number]) 06/24/23 Recorded influenza virus vaccine, inactivated 04/12/24 [...] d RSV vaccine preF3, recombinant 04/30/23 Recorded [id number] 12y+ bivalent booster vax 05/17/22 Recorded SARS-CoV-2 mRNA (segeabz-[id number]-fznyg) vax 11/15/21 Recorded SARS-CoV-2 (COVID-19) mRNA BNT-162b2 [...] 6 08/19/12 Recorded 1Location History: [facility] 2Result Comment: [facility] 3Location History: Dr. Jaramillo 4Location History: [...] Date: 05/29/23 Status: Ordered Repeat number: 1 Freestyle Flash Glucose Meter See Instructions, # 1 each, Refills 5, Tot. Refills 5, Maintenance, Hypoglycemia- to moniter blood sugar three times a day, 10/12/24 3:00:00 PM EST, Supply, 165.7, cm, 09/14/24 10:14:00 EST, Height Start Date: 10/12/24 Stop Date: 04/10/25 Status: Ordered Quantity: 1.0 Unit: each Repeat number: 6 Freestyle Lancets See Instructions, # 50 each, Refills 2, Tot. Refills 2, Maintenance, Hypoglycemia monitor blood sugar 3 times a day, 10/12/24 3:01:00 PM EST, Supply, 165.7, cm, 09/14/24 10:14:00 EST, Height Start Date: 10/12/24 Stop Date: 07/09/25 Status: Ordered Quantity: 50.0 Unit: each Repeat number: 3 Freestyle Lite Test Strips See Instructions, # 100 each, Tot. Refills 2, Maintenance, Hypoglycemia to monitor blood sugars 3 times a day, 10/12/24 3:02:00 PM EST, Supply, 165.7, cm, 09/14/24 10:14:00 EST, Height Start Date: 10/12/24 Stop Date: 01/10/25 Status: Ordered Quantity: 100.0 Unit: each Repeat number: 3 omeprazole 10 mg oral enteric coated capsule 1 capsule = 10 mg, By Mouth, Daily, sent to [facility] , # 90 capsule, 1 Refills, Maintenance, 10/06/24 2:49:00 PM EST, EC Capsule, [facility]/pharmacy #[id number], Partial fill upon patient request if the prescription is for a schedule II opioid drug., 165.7, cm, 09/14/24 10:14:00 EST, Height Start Date: 10/06/24 Status: Ordered Quantity: 90.0 Unit: capsule Repeat number: 2 Pataday Daily, 0 Refills, Maintenance, 12/05/22 1:51:00 [...] 9:53:00 AM EST, Route to Pharmacy Electronically, [id number], [facility]/pharmacy #[id number], 165.7, cm, [...] DM2 (diabetes mellitus, type 2) Confirmed Active Results Radiology Reports * Exam Date Time Procedure Performing Provider Status 10/12/24 6:12 AM MRI Brain W/O Contrast Emily Guzman; Auth (Verified) Notes: (MRI Brain W/O Contrast) Reason For Exam: Seizure Disorder RESULT: MRI Brain W/O Contrast MRI Brain W/O Contrast INDICATION / CLINICAL QUESTION: Reason: Seizure Disorder; Clinical Question(s): Other:; seizure focus; Special Instructions: epilepsy protocol; Order Comment: Please see Reference Text for complete list of contraindications Other: TECHNIQUE: MRI of the brain was performed without contrast utilizing sagittal T1, axial T2, coronalT2, coronal FLAIR, axial SWAN, and axial DWI sequences. COMPARISON: CT head 10/11/2024. FINDINGS: BRAIN and EXTRA-AXIAL SPACES: The midline structures are unremarkable. There is no mass effect, midline shift, or effacement of the basal cisterns. No acute or subacute infarct or intracranial hemorrhage are present. Mild to moderate scattered foci of T2 prolongation are seen in the periventricular, deep, and subcortical white matter. The mesial temporal lobes are normal and symmetric in signal, contour, and caliber. No cortical dysplasia or heterotopia is identified, allowing for mild motion artifact. Ventricles, cisterns, and sulci are mildly prominent, consistent with volume loss, without hydrocephalus. No abnormal extra-axial fluid collections are seen. Meningeal surfaces are normal. Major intracranial flow voids are present. EXTRACRANIAL SOFT TISSUES: Orbits are unremarkable. There is mild scattered mucosal thickening in the paranasal sinuses, with left frontal mucous retention cyst, and small amount of layering fluid inthe left maxillary sinus. BONES: Marrow signal is preserved. IMPRESSION: 1. No acute/subacute infarct, mass, hemorrhage, or other acute intracranial abnormality. 2. Mild to moderate T2/FLAIR hyperintense foci in the white matter, nonspecific but most likely reflecting chronic small vessel disease. WSN: [id number] Ordering Physician: Jeffrey Kelly Dictated By: Reny Grimaldo MD Dictated Date/Time: 10/12/24 8:15 am Reviewed By: Reny Grimaldo MD Signed By: Reny Grimaldo MD Signed Date/Time: 10/12/24 8:15 am Transcribed By: JAYE Transcribed Date/Time: 10/12/24 8:11 am * Exam Date Time Procedure Performing Provider Status 10/11/24 7:[address] Head/Brain W/O Contrast Janelle Batres ly; Auth (Verified) Notes: (CT Head/Brain W/O Contrast) Reason For Exam: Brain mass or lesion;Other: RESULT: CT Head/Brain W/O Contrast CT Head/Brain W/O Contrast INDICATION: Reason: Other:; Brain mass or lesion; Clinical Question(s): Hematoma TECHNIQUE: Noncontrast head CT using axial technique and reconstructed in axial and coronal planes.Iterative reconstruction techniques are used to optimize dose and image quality. CTDIvol Head: 39.36 mGy, DLP Head: 709 mGy*cm. COMPARISON: None. FINDINGS: Metal Bending Machine Operator view findings, lines and tubes: None. BRAIN AND EXTRA-AXIAL SPACES: No parenchymal hemorrhage, midline shift, or mass effect. Leal-white matter differentiation is wellpreserved. No acute infarct. Negative insular ribbon sign. Atherosclerotic vascular calcification of the carotid arteries but negative hyperdense vessel sign. Mild prominence of the ventricles and sulci consistent with parenchymal volume loss. Mild low-density white matter changes. No subarachnoid hemorrhage. No subdural or epidural collection. CALVARIUM, SKULL BASE, AND SOFT TISSUES: No fractures or suspicious bony lesions. Bilateral sinus mucosal thickening. No mastoid or middle ear fluid. Visualized orbits and globes are intact. The extracranial soft tissues are unremarkable. IMPRESSION: No acute intracranial pathology. Mild sinusitis. WSN: [id number] Ordering Physician: Francisco J Bustillo Dictated By: Homer Arnett MD Dictated Date/Time: 10/11/24 7:55 pm Reviewed By: Homer Arnett MD Signed By: Homer Arnett MD Signed Date/Time: 10/11/24 7:55 pm Transcribed By: JAYE Transcribed Date/Time: 10/11/24 7:54 pm * Exam Date Time Procedure Performing Provider Status 10/11/24 7:[address] Angio Abdomen Medardo Tiffanie; Auth ( Verified) Notes: (CT Angio Abdomen) Reason For Exam: Renal artery dissection suspected;Other: RESULT: CT Angio Abdomen EXAMINATION: CT Angio Chest, CT Angio Abdomen INDICATION: Reason: Other:; Aortic disease, nontraumatic; Clinical Question(s): Other:; Aortic Dissection TECHNIQUE: Spiral CTA of the chest was performed after rapid IV contrast administration without cardiac gating triggered by an SORAIDA on the aorta. Images are formatted in multiple planes using 2-D multiplanar and 3-D maximum intensity projection. 100 cc of Isovue 300 was administered intravenously. Weight-based protocol using automatic tube modulation was used to optimize exposure parameters. CTDIvol Body: 7.54 mGy, DLP Body: 374 mGy*cm. COMPARISONS: None. ANGIOGRAPHIC FINDINGS: No aortic dissection or aneurysm. Vascular calcification noted. Pulmonary arteries are normal in caliber. No evidence of central pulmonary embolism on this study performed without dedicated technique. NON-ANGIOGRAPHIC FINDINGS: Metal Bending Machine Operator View Findings, Lines and Tubes: None. Trachea and Airways: Patent without evidence of tracheal or endobronchial lesion. Lungs and Pleura: Clear lungs. No effusion or pneumothorax. Mediastinum and arline: No mass or hematoma. No mediastinal or hilar lymphadenopathy. No esophageal abnormality. Heart: Heart is normal in size. No pericardial effusion. Chest Wall Soft Tissues: Normal. Diaphragm : No significant abnormality. Liver: Nodular capsule suggesting cirrhosis. Gallbladder: No CT evidence of gallbladder pathology. Bile ducts: No biliary ductal dilation. Spleen: Normal. Pancreas: Normal. Adrenal glands: Normal. Kidneys and ureters: No hydronephrosis, stones, or suspicious masses. Stomach, small bowel, and large bowel: Visualized stomach and bowel are normal. Peritoneum and retroperitoneum: No ascites or pneumoperitoneum. No omental or mesenteric lesions. Lymph nodes: No enlarged lymph nodes. Abdominal wall: Unremarkable. Bones: No acute abnormality. IMPRESSION: No aortic aneurysm or dissection. Findings of cirrhosis. WSN: [id number] Ordering Physician: Francisco J Bustillo Dictated By: Silvio Callahan MD Dictated Date/Time: 10/11/24 7:42 pm Reviewed By: Silvio Callahan MD Signed By: Silvio Callahan MD Signed Date/Time: 10/11/24 7:42 pm Transcribed By: JAYE Transcribed Date/Time: 10/11/24 7:37 pm * Exam Date Time Procedure Performing Provider Status 10/11/24 7:[address] Angio Chest Tiffanie Batres; Auth (Ve rified) Notes: (CT Angio Chest) Reason For Exam: Aortic disease, nontraumatic;Other: RESULT: CT Angio Chest EXAMINATION: CT Angio Chest, CT Angio Abdomen INDICATION: Reason: Other:; Aortic disease, nontraumatic; Clinical Question(s): Other:; Aortic Dissection TECHNIQUE: Spiral CTA of the chest was performed after rapid IV contrast administration without cardiac gating triggered by an SORAIDA on the aorta. Images are formatted in multiple planes using 2-D multiplanar and 3-D maximum intensity projection. 100 cc of Isovue 300 was administered intravenously. Weight-based protocol using automatic tube modulation was used to optimize exposure parameters. CTDIvol Body: 7.54 mGy, DLP Body: 374 mGy*cm. COMPARISONS: None. ANGIOGRAPHIC FINDINGS: No aortic dissection or aneurysm. Vascular calcification noted. Pulmonary arteries are normal in caliber. No evidence of central pulmonary embolism on this study performed without dedicated technique. NON-ANGIOGRAPHIC FINDINGS: Metal Bending Machine Operator View Findings, Lines and Tubes: None. Trachea and Airways: Patent without evidence of tracheal or endobronchial lesion. Lungs and Pleura: Clear lungs. No effusion or pneumothorax. Mediastinum and arline: No mass or hematoma. No mediastinal or hilar lymphadenopathy. No esophageal abnormality. Heart: Heart is normal in size. No pericardial effusion. Chest Wall Soft Tissues: Normal. Diaphragm : No significant abnormality. Liver: Nodular capsule suggesting cirrhosis. Gallbladder: No CT evidence of gallbladder pathology. Bile ducts: No biliary ductal dilation. Spleen: Normal. Pancreas: Normal. Adrenal glands: Normal. Kidneys and ureters: No hydronephrosis, stones, or suspicious masses. Stomach, small bowel, and large bowel: Visualized stomach and bowel are normal. Peritoneum and retroperitoneum: No ascites or pneumoperitoneum. No omental or mesenteric lesions. Lymph nodes: No enlarged lymph nodes. Abdominal wall: Unremarkable. Bones: No acute abnormality. IMPRESSION: No aortic aneurysm or dissection. Findings of cirrhosis. WSN: [id number] Ordering Physician: Francisco J Bustillo Dictated By: Silvio Callahan MD Dictated Date/Time: 10/11/24 7:42 pm Reviewed By: Silvio Callahan MD Signed By: Silvio Callahan MD Signed Date/Time: 10/11/24 7:42 pm Transcribed By: JAYE Transcribed Date/Time: 10/11/24 7:37 pm * Exam Date Time Procedure Performing Provider Status 10/11/24 7:03 PM Chest Portable Rinku Cohen; Chriss (Verified) Notes: (Chest Portable) Reason For Exam: Shortness of Breath RESULT: Chest Portable Chest Portable Reason: Shortness of Breath; Clinical Question(s): CHF COMPARISON: 10/23/2019 FINDINGS: LINES AND TUBES: None. LUNGS AND PLEURA: Low lung volumes with mild basilar atelectasis. Lungs are otherwise clear with no consolidation. No pleural effusion. No pneumothorax. HEART, MEDIASTINUM AND ARLINE: Mild prominence of the cardiac silhouette. Normal mediastinal and hilar contour. BONES AND SOFT TISSUES: No acute abnormality. IMPRESSION: No definite acute abnormality on limited exam. WSN: [id number] Ordering Physician: Francisco J Bustillo Dictated By: Silvio Callahan MD Dictated Date/Time: 10/11/24 7:29 pm Reviewed By: Silvio Callahan MD Signed By: Silvio Callahan MD Signed Date/Time: 10/11/24 7:29 pm Transcribed By: JAYE Transcribed Date/Time: 10/11/24 7:28 pm Vital Signs Most recent to oldest [Reference Range]: 1 2 3 Oxygen Saturation [94-100 %] 100 % (10/12/24 3:50 PM) 96 % (10/12/24 9:23 AM) 95 % (10/12/24 4:07 AM) Pulse Rate [55-90 bpm] 53 bpm *L* (10/12/24 3:50 PM) 59 bpm (10/12/24 9:23 AM) 57 bpm (10/12/24 4:07 AM) Blood Pressure [90-138/55-84 mm Hg] 148/71mm Hg *H* (10/12/24 3:50 PM) 144/75mm Hg *H* (10/12/24 9:23 AM) 145/83mm Hg *H* (10/12/24 4:07 AM) Respiratory Rate [16-30 br/min] 18 br/min (10/12/24 3:50 PM) 18 br/min (10/12/24 9:23 AM) 21 br/min (10/12/24 4:07 AM) Temperature [96.8-100.4 DegF] 99.5 DegF (10/12/24 3:50 PM) 97.0 DegF (10/12/24 9:23 AM) 98.6 DegF (10/12/24 2:34 AM) Mode of Delivery (Oxygen) Room air (10/12/24 3:50 PM) Room air (10/12/24 9:23 AM) Room air (10/12/24 4:07 AM) Blood pressure sites Arm, left (10/12/24 9:23 AM) Arm, left (10/12/24 4:07 AM) Arm, left (10/12/24 2:34 AM) Temperature Route Oral (10/12/24 3:50 PM) Oral (10/12/24 9:23 AM) Oral (10/12/24 2:34 AM) Social History Social History Type Response Smoking Status Former smoker; Tobac co user in household: No; Other: started and quit in 1969 (only smoked for 6 months).; entered on: 03/01/16 Sex Sex Representation Male (finding) History and physical note * Jeffrey Kelly MD: PERFORM Event Display: History and Physical Hospital Authored Date: [id number] Patient: ??GOLD, JOSÉ ? Age:??73 Years?Sex:??Male?:??1950?? Chief Complaint/Reason for Consultation seizure History of Present Illness 73-year-old male presented to the emergency room after a seizure.?? The history is obtained from the patient as well as his who is at the bedside.?? She explains that??they had come home from eating lunch at a restaurant??and??he sat down??and started rubbing his head and then chest??and then told her that he was not feeling well and to call 911. ??He then began shaking all over, foaming at t he mouth, and became rigid. ??He slumped over in the chair and became less responsive.?? He remembers feeling unwell before the episode but can give no further details.?? He did bite his tongue during the episode but had no other injury or incontinence.?? He tells me that he had been well recently without any complaints??and has never had a seizure previously.?? Apparently EMS gave half an amp ofD50??although it is unclear what his blood sugar was at that time.?? His blood sugar on arrival here was 125.?? He has a history of borderline diabetes but is not on any??medication for same.?? He denies any??chest pain, shortness of breath, cough, fever, headache, focal weakness, urinary symptoms, vomiting, diarrhea.?? He currently feels back to baseline.?? He was reportedly postictal after the episode. ? RESULT: Chest Portable Chest Portable?? IMPRESSION: No definite acute abnormality on limited exam. ?? RESULT: CT Head/Brain W/O Contrast CT Head/Brain W/O Contrast?? IMPRESSION: No acute intracranial pathology. Mild sinusitis. ?? RESULT: CT Angio Chest EXAMINATION: CT Angio Chest, CT Angio Abdomen?? IMPRESSION:?? No aortic aneurysm or dissection. Findings of cirrhosis. [3] Review of Systems Constitutional:??No weight loss, fever, chills, weakness or fatigue. Eyes:??No visual loss, blurred vision, double vision or yellow sclera ENT:??No hearing loss, sneezing, congestion, runny nose or sore throat. Respiratory:??No shortness of breath, cough or sputum production. Cardiovascular:??No chest pain, chest pressure or chest discomfort. Gastrointestinal:??No anorexia, nausea, vomiting or diarrhea. Genitourinary:??No burning micturition. No urinary frequency or incontinence. Neurologic: seizure Musculoskeletal:??No muscle pain, back pain, joint pain or stiffness. Skin:??No rash or itching. Endocrine:??No reports of sweating. No cold or heat intolerance. No polyuria or polydipsia. Psychiatric:??No depression or anxiety. Objective ? Vital Signs?? Temperature: 98.6 DegF (10/12/24 02:34:00) Temperature Route: Oral (10/12/24 02:34:00) Pulse Rate: 57 bpm (10/12/24 04:07:00) Respiratory Rate: 21 br/min (10/12/24 04:07:00) Systolic Blood Pressure:??145 mm Hg??High (10/12/24 04:07:00) Diastolic Blood Pressure: 83 mm Hg (10/12/24 04:07:00) Blood pressure sites: Arm, left (10/12/24 04:07:00) Mean Arterial Pressure: 104 mm Hg (10/12/24 04:07:00) Pulse Pressure: 62 mm Hg (10/12/24 04:07:00) Oxygen Saturation: 95 % (10/12/24 04:07:00) Mode of Delivery (Oxygen): Room air (10/12/24 04:07:00) Early Warning Score: 5 (10/12/24 04:08:13) ? Physical Exam Constitutional: Alert, in no distress. Mental Status: Oriented to person, place and time. Head: Normocephalic. Eyes: Pupils are equal, round and reactive to light. Extraocular muscles intact. Ear, Nose and Throat: Oropharynx clear, mucous membranes moist. Neck: Supple, Full range of motion. Respiratory: Clear to auscultation. No wheezing, rales or rhonchi. Cardiovascular: S1 S2 regular. No murmurs, rubs or gallops. Gastrointestinal: Abdomen soft, non-tender, non-distended. Normal bowel sounds. Genitourinary: No costovertebral angle tenderness. Neurologic: Cranial nerves II-XII grossly intact. power 5/5 x4 Skin: No rashes or lesions. No petechiae or purpura.?? Musculoskeletal: No cyanosis or clubbing. No gross deformities. Normal range of motion. Psychiatric: Normal mood and affect Assessment/Plan Seizure (R56.9):? The history sounds like a generalized tonic-clonic seizure He has never had a seizure previously Currently back to baseline Continue seizure precautions Ativan as needed CT head negative Neuro consult??this morning Check MRI brain Advised against driving until cleared by??neurology ?? Acidosis, lactic (E87.20):? Likely secondary to??seizure Lactate??improving Trend to normal ?? Asthma (J45.909):? Currently asymptomatic Continue Spiriva ?? VTE Prophylaxis:? Patient mobile and low risk for DVT ?VTE Prophylaxis Assessment:??Risk Level documented as Low Risk ?? Code Status:? Full code Confirmed with patient at bedside ?Order Code Status:??Code Status Ordered ?? Patient seen 10/12/2024 ? Histories Allergies Allergies ?(Active and Proposed Allergies Only) Other Environmental Allergy? (Severity: Unknown severity, Onset: Unknown) ?Comments: pollen, trees, molds and dust. Augmentin? (Severity: Unknown severity, Onset: Unknown) ? 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 Past Surgical History History of cholecystectomy ? Social History Patient lives with his Non-smoker Denies alcohol ? Family History Mother: Diabetes mellitus type II; Hyperlipidemia; Hypertension Father: CAD - Coronary artery disease; Hyperlipidemia; Hypertension ? Medications Home Medications Albuterol (Albuterol (Eqv-ProAir HFA) 90 mcg/inh inhalation aerosol)??1 puff(s) Inhalation Every 4 hours as needed NEEDED FOR WHEEZING j45.909 Budesonide-Formoterol (Symbicort 160mcg/4.5mcg Inhaler)??2 puff(s) Inhalation 2 times a day j45.909 Cetirizine (ZyrTEC 10 mg oral tablet)??1 tab(s) 10 Milligram By Mouth Daily Cholecalciferol (Vitamin D3)??2,000 unit(s) By Mouth Daily Eszopiclone (eszopiclone 2 mg oral tablet)??1 tab(s) By Mouth Daily at bedtime as needed NEEDED FOR SLEEP Multivitamin With Minerals (PreserVision AREDS 2 oral capsule)??1 capsule By Mouth 2 times a day Olopatadine Ophthalmic (Pataday)??Daily Omeprazole (omeprazole 10 mg oral enteric coated capsule)??1 capsule 10 Milligram By Mouth Daily sent to [facility] [phone] Tamsulosin (Flomax 0.4 mg oral capsule)??0.4 Milligram 1 capsule By Mouth Daily Tiotropium (Spiriva Respimat 1.25 mcg/inh inhalation aerosol)??2 puff(s) 2.5 Microgram Inhalation Daily j45.40 ? Results Recent Labs BLOOD COUNT & DIFF WBC 10.9 k/mm3 ()?? 10/11/2024 18:47 RBC 4.65 m/mm3 (Low)?? 10/11/2024 18:47 Hgb 14.9 Gm/dL ()?? 10/11/2024 18:47 Hct 46.3 % ()?? 10/11/2024 18:47 MCV 99.6 femtoliters (High)?? 10/11/2024 18:47 MCH 32.0 pg ()?? 10/11/2024 18:47 MCHC 32.2 Gm/dL (Low)?? 10/11/2024 18:47 Platelet Count 175 k/mm3 ()?? 10/11/2024 18:47 RDW-SD 47.8 femtoliters (High)?? 10/11/2024 18:47 MPV 10.5 femtoliters ()?? 10/11/2024 18:47 Nucleated RBC (Automated) 0.0 #/100 WBC'S ()?? 10/11/2024 18:47 Abs. NRBC 0.0 k/mm3 ()?? 10/11/2024 18:47 Abs. Neut 5.0 k/mm3 ()?? 10/11/2024 18:47 Abs. Lymph 4.6 k/mm3 (High)?? 10/11/2024 18:47 Abs. Sebastian 0.9 k/mm3 ()?? 10/11/2024 18:47 Abs. Eo 0.4 k/mm3 ()?? 10/11/2024 18:47 Abs. Baso 0.1 k/mm3 ()?? 10/11/2024 18:47 Neut % 45.7 % ()?? 10/11/2024 18:47 Lymph % 42.0 % ()?? 10/11/2024 18:47 Sebastian % 7.8 % ()?? 10/11/2024 18:47 Eos % 3.3 % ()?? 10/11/2024 18:47 Baso % 0.6 % ()?? 10/11/2024 18:47 Hemoglobin (POC) POC Cartridge 14.6 Gm/dL ()?? 10/11/2024 19:01 Hematocrit (POC) POC Cartridge 43 % ()?? 10/11/2024 19:01 Imm Gran 0.6 % ()?? 10/11/2024 18:47 Abs. Imm Gran 0.1 k/mm3 ()?? 10/11/2024 18:47 ?? BLOOD GAS pH Venous (POC) POC Cartridge 7.34 ()?? 10/11/2024 19:01 pCO2 Venous (POC) POC Cartridge 30.3 mm Hg (Low)?? 10/11/2024 19:01 pO2 Venous (POC) POC Cartridge 40 mm Hg ()?? 10/11/2024 19:01 Est Bicarbonate (POC) POC Cartridge 16.4 mmol/L (Low)?? 10/11/2024 19:01 % O2 Sat Venous (POC) POC Cartridge 73 ()?? 10/11/2024 19:01 Base Excess (POC) POC Cartridge NEGATIVE 9 ()?? 10/11/2024 19:01 Specimen Type - Blood Gas VENOUS ()?? 10/11/2024 19:01 ?? CARDIAC CK, Total 753 units/L (High)?? 10/11/2024 20:20 Nt-Probnp 121 pg/mL ()?? 10/11/2024 18:47 High Sensitivity Troponin (HSTnT) 9 ng/L ()?? 10/11/2024 18:47 ?? CHEM GENERAL Sodium 134 mmol/L ()?? 10/11/2024 18:47 Potassium 3.9 mmol/L ()?? 10/11/2024 20:20 Chloride 98 mmol/L ()?? 10/11/2024 18:47 Bicarbonate Level 13 mmol/L (Low)?? 10/11/2024 18:47 Anion Gap 23 mmol/L (High)?? 10/11/2024 18:47 Sodium (POC) POC Cartridge 137 mmol/L ()?? 10/11/2024 19:01 Potassium (POC) POC Cartridge 4.0 mmol/L ()?? 10/11/2024 19:01 Glucose Level 144 mg/dL (High)?? 10/11/2024 18:47 Glucose (POC) POC Cartridge 128 (High)?? 10/11/2024 19:01 Glucose, POC 125 mg/dL (High)?? 10/11/2024 18:38 Beta Hydroxybutyrate 0.12 mmol/L ()?? 10/11/2024 18:47 BUN 13 mg/dL ()?? 10/11/2024 18:47 Creatinine-Blood 1.19 mg/dL ()?? 10/11/2024 18:47 Estimated GFR Creatinine 65 ML/MIN/1.73 M2 ()?? 10/11/2024 18:47 Calcium 9.0 mg/dL ()?? 10/11/2024 18:47 Ionized Calcium (POC) POC Cartridge 1.12 mmol/L (Low)?? 10/11/2024 19:01 Magnesium 2.4 mg/dL (High)?? 10/11/2024 18:47 Protein, Total 7.4 Gm/dL ()?? 10/11/2024 18:47 Albumin 4.3 Gm/dL ()?? 10/11/2024 18:47 AG Ratio 1.4 ()?? 10/11/2024 18:47 Alkaline Phosphatase 96 units/L ()?? 10/11/2024 18:47 Lipase, Serum/Plasma HEMOLYZED units/L ()?? 10/11/2024 18:47 AST (SGOT) 40 units/L ()?? 10/11/2024 18:47 ALT (SGPT) 32 units/L ()?? 10/11/2024 18:47 Bilirubin, Total 0.6 mg/dL ()?? 10/11/2024 18:47 Lactate 2.4 mmol/L (High)?? 10/11/2024 22:30 ?? ENDOCRINE/TUMOR MARKER TSH 2.31 uIU/mL ()?? 10/11/2024 18:47 ?? MISC. CHEMISTRY Ammonia, Venous 35 ??mole/L ()?? 10/11/2024 20:20 ?? TOXICOLOGY/TDM Ethanol, Serum or Plasma NONE DETECTED mg/dL ()?? 10/11/2024 18:47 Salicylate Level <0.3 mg/dL (Low)?? 10/11/2024 18:47 Acetaminophen Level <5 mg/L (Low)?? 10/11/2024 18:47 ?? UA/URINALYSIS Appear/Color, Urine COLORLESS ()?? 10/12/2024 00:18 Specific [place], Urine 1.018 ()?? 10/12/2024 00:18 pH, Urine 6.5 ()?? 10/12/2024 00:18 Albumin, Urine TRACE (Abnormal)?? 10/12/2024 00:18 Glucose, Urine NEGATIVE ()?? 10/12/2024 00:18 Ketones, Urine 1+ (Abnormal)?? 10/12/2024 00:18 Bilirubin, Urine NEGATIVE ()?? 10/12/2024 00:18 Hemoglobin, Urine TRACE (Abnormal)?? 10/12/2024 00:18 Nitrite, Urine NEGATIVE ()?? 10/12/2024 00:18 Leukocyte, Urine NEGATIVE ()?? 10/12/2024 00:18 Urobilinogen NORMAL mg/dL ()?? 10/12/2024 00:18 WBC's, Urine 1 /HPF ()?? 10/12/2024 00:18 RBC's, Urine 1 /HPF ()?? 10/12/2024 00:18 ? EKG study * Event Display: EKG Authored Date: * Event Display: EKG Authored Date: * Event Display: ECG 12-Lead Authored Date: Please click on pdf link to open report * Event Display: ECG 12-Lead Authored Date: Ventricular Rate: 63 BPM Atrial Rate: 63 BPM P-R Interval: 170 ms QRS Duration: 104 ms Q-T Interval: 430 ms QTC Calculation(Bazett): 440 ms P [place]: 66 degrees R [place]omb: 59 degrees T [place]omb: 32 degrees Normal sinus rhythm Normal ECG When compared with ECG of 11-Oct-2024 18:35, Premature ventricular complexes are no longer Present Confirmed by SHIMA WHITE ([id number]) on 10/12/2024 8:20:20 AM Freeman: SHIMA WHITE * Event Display: ECG 12-Lead Authored Date: Please click on pdf link to open report * Event Display: ECG 12-Lead Authored Date: Ventricular Rate: 76 BPM Atrial Rate: 76 BPM P-R Interval: 166 ms QRS Duration: 102 ms Q-T Interval: 424 ms QTC Calculation(Bazett): 477 ms P [place]: 71 degrees R [place]omb: 54 degrees T Macomb: 41 degrees Sinus rhythm with occasional Premature ventricular complexes Poor R wave progression Abnormal ECG When compared with ECG of 01-May-2024 13:10, QT has lengthened Confirmed by JEFFREY MURRAY MD ([id number]) on 10/12/2024 10:18:07 AM Freeman: JEFFREY MURRAY MD Consult note * Kelli Hargrove: PERFORM, MODIFY Event Display: Consultation Note Authored Date: Patient: ??JOSÉ BARRETT ? Age:??73 Years?Sex:??Male?:??1950?? Chief Complaint/Reason for Consult seizure History of Present Illness 73-year-old male with past medical history of diabetes, asthma, hyperlipidemia, alcohol related liver cirrhosis presenting to the hospital with seizure episode.?? Patient had gone out to dinner when he returned home and began to feel unwell.?? He describes his vision was jumping around and it wasdifficult for him to focus, palpitations, lightheadedness, clamminess and then witnessed by keesha consciousness.?? At that time he was noted to have eyes deviated to the left with rigidity including right arm in a clawlike position raising up towards the head and foaming at the mouth.?? She describes significant convulsions throughout.?? EMS was called and arrived.?? It appears that his glu cose was 64 and they administered half amp of D50 but is unclear what his blood glucose level was.?? He he began to wake up en??route and was noted to be postictal and confused. On arrival to the emergency room he was noted to have a glucose of 125.?? Lactate was 12 coming down to 2.?? He had CT which was nonacute, MRI also nonacute and EEG which was within normal limits. Patient denies any history of seizures.?? He states that the preceding symptoms are similar to how he has felt when his glucose has been low in the past.?? No family history of seizures, no history of meningitis or encephalitis, no head history of head trauma, no recent illness or sleep deprivation.?? He does take Lunesta occasionally for sleep and has been using it more frequently over the past 2 weeks, taking it nightly.?? He currently feels at his neurologic baseline and is eager to go home. Review of Systems ROS significant for seizure Patient denies the following General: fevers HEENT: hearing loss Cardiac: chest pain, palpitations Pulmonary: SOB Gastrointestinal: abdominal pain Genitourinary: incontinence Musculoskeletal: myalgias Dermatological: rash Hematological: bruising Psychiatric: depression Neurological: weakness, numbness, paresthesias, headache, diplopia, visual field loss, dysarthria, dysphagia, aphasia, facial droop, gait imbalance, vertigo ?? Physical Exam Vitals & Measurements T:??97.0?F?? HR:??59??(Peripheral)?? RR:??18?? BP:??144/75?? SpO2:??96%? Gen: NAD, awake, alert HEENT: normocephalic, atraumatic. No ptosis. Nares patent. Mouth normal. Psych: not depressed or anxious Cardio: RRR Lungs: normal I:E Abdomen: nondistended Extremities: no edema Skin: no rashes Mental status: intact, no deficits Speech is fluent, appropriate with no slurring or aphasia. Repeats 'No ifs, ands, or buts . Names well. Follows simple and complex commands. Cranial Nerves: PERRL, EOMI without nystagmus, VFF. Face appears symmetric with no drooping or weakness. Facial sensation intact. Motor: 5/5 bilaterally. No pronator drift. Normal bulk and tone. No abnormal movements. Coordination: No ataxia or dysmetria noted with finger to nose.?? Sensation: Intact light touch sensation bilaterally. No extinction to DSS Gait and stance normal Assessment/Plan 73-year-old male with past medical history of diabetes, asthma, hyperlipidemia, alcohol related liver cirrhosis presenting to the hospital with seizure episode??witnessed to have eyes deviated to theleft with rigidity including right arm in a clawlike position raising up towards the head and foaming at the mouth and generalized convulsions.??Glucose was 64, given 1/2 amp of D50. He was post ictal.?? In ??emergency room he was noted to have a glucose of 125, Lactate was 12 coming down to 2.??Workuphas included MRI also nonacute and EEG which was within normal limits. ?? ddx: first time seizure, could be provoked by hypoglycemia ?? Recommendations: -no AED at this time, since seizure appears to be provoked. If further episodes occur could reconsider ?-seizure precautions ?-ativan prn seizure > 5minutes ?-defer to medical team to rule out metabolic or infectious causes of seizure ?-per [place] state law, no driving until 6 months seizure free. patient expresses good understanding of this. ?-avoid any activity that put you or others at risk should you lose consciousness ?-patient should follow up with epilepsy clinic. I have contacted city secretary and am awaiting to hear back in regards to date/time. patient will be contacted at home with this appointment?? -outpatiet 24 hour ambulatory EEG to be set up by neuro clinic -neurology will sign off ?? d/w Dr. Celestin, Dr. Rod Problem List/Past Medical History Ongoing Ascending aortic aneurysm Asthma Colon polyp DM2 (diabetes mellitus, type 2) GERD (gastroesophageal reflux disease) Gout Hepatic cirrhosis Hx of multiple pulmonary nodules Hyperlipidemia Insomnia Obese class I Procedure/Surgical History History of cholecystectomy Home Medications Albuterol: 1 puffs, Inhalation, Every 4 hours, PRN ( NEEDED FOR WHEEZING), j45.909 Budesonide-Formoterol: 2 puffs, Inhalation, 2 times a day, j45.909 Cetirizine: 10 mg = 1 tablet, By Mouth, Daily Cholecalciferol: 2,000 units, By Mouth, Daily Eszopiclone: 1 tablet, By Mouth, Daily at bedtime, PRN ( NEEDED FOR SLEEP) Multivitamin With Minerals: 1 capsule, By Mouth, 2 times a day Olopatadine Ophthalmic: Daily Omeprazole: 10 mg = 1 capsule, By Mouth, Daily, sent to [facility] [phone] Tamsulosin: 0.4 mg = 1 capsule, By Mouth, Daily Tiotropium: 2.5 mcg = 2 puffs, Inhalation, Daily, j45.40 Allergies Augmentin Other Environmental Allergy Social History Denies drug use No alcohol use.?? He stopped drinking 12 years ago Denies tobacco use Family History Mother: Diabetes mellitus type II; Hyperlipidemia; Hypertension Father: CAD - Coronary artery disease; Hyperlipidemia; Hypertension Radiology MRI brain: ?? IMPRESSION: ?? 1. No acute/subacute infarct, mass, hemorrhage, or other acute intracranial abnormality.?? 2. Mild to moderate T2/FLAIR hyperintense foci in the white matter, nonspecific but most likely reflecting chronic small vessel disease.?Images have been personally reviewed by myself ?? EEG: ?? IMPRESSION:??The EEG is within normal limits during wakefulness and??sleep. No focal, lateralized or??epileptiform activity is present.? * Sabi CUI, Ellen Medkristi: PERFORM Event Display: Consultation Note Authored Date: Attending PA/FISHER PURSE SEINE Attestation:??I have reviewed the patient's medical history, findings on examination, diagnosis and treatment plan as documented in the PA/FISHER PURSE SEINE note. Case and its management discussed with PA/FISHER PURSE SEINE.?? I have seen and examined the patient. ?? 73-year-old man with a medical history of prediabetes, asthma, hyperlipidemia, and cirrhosis presented with a witnessed seizure. This was his first seizure??in his??life, characterized by left eye deviation, rigidity/posturing of the right upper extremity, foaming at the mouth, and generalized convulsive movements. Prior to the seizure, he reported feeling unwell, headache, difficulty focusing, palpitations, lightheadedness, and clumsiness. He mentioned that these symptoms had occurred in the past when his blood glucose was low. Upon EMS arrival, his blood glucose level was 64. He was given D50 and transferred to the emergency department for further evaluation. In the ED, his blood glucose level was 125, and his lactate level was 12, which later improved to 2.?? CT head was unremarkable.?? MRI brain showed mild to moderate T2/FLAIR hyperintense foci in the white matter, nonspecific but most likely reflecting chronic small vessel disease. No seizure focus was identified.?? Routine EEG was normal. His neurological examination is normal. His seizures could be??a provoked seizure??due to??hypoglycemia??as he reported??typical hypoglycemia symptoms prior to the seizure.?? However,??unable to rule out an epileptic etiology at this time.??MRI and EEG results are reassuring. Since this was his first seizure and both the MRI and EEG did not show any abnormalities, recommend holding off on antiseizure medication for now. ??Recommend obtaining 24-hour ambulatory EEG as outpatient and following up in the neurology clinic.?Also recommend??additional workup??for his??blood glucose fluctuations??and possible intermittent hypoglycemia??that he is reported. He is aware that he should avoid driving??for 6 months??after the seizures. ?? Note * Viola Harvey MD, Chelsea: PERFORM, MODIFY Event Display: Discharge/Transfer Note Hospital Authored Date: [id number] Patient: ??JOSÉ BARRETT ? Age:??73 Years?Sex:??Male?:??1950?? Patient Information Discharge Location: [facility] Primary Care Physician: Gil Dugan MD Admit Date/Time: 10/11/2024 18:35 Discharge Disposition Discharge Disposition: Home: No Services Discharge Diagnosis Seizure ([id number])??first onset Seizure (R56.9) Asthma (J45.909) Acidosis, lactic (E87.20) Hypoglycemia _ Discharge Medications Albuterol (Albuterol (Eqv-ProAir HFA) 90 mcg/inh inhalation aerosol)??1 puff(s) Inhalation Every 4 hours as needed NEEDED FOR WHEEZING j45.909 Budesonide-Formoterol (Symbicort 160mcg/4.5mcg Inhaler)??2 puff(s) Inhalation 2 times a day j45.909 Cetirizine (ZyrTEC 10 mg oral tablet)??1 tab(s) 10 Milligram By Mouth Daily Cholecalciferol (Vitamin D3)??2,000 unit(s) By Mouth Daily Durable Medical Equipment (Freestyle Flash Glucose Meter)??See Instructions for 30 Days Hypoglycemia- to moniter blood sugar ??three times a day Durable Medical Equipment (Freestyle Lancets)??See Instructions for 90 Days Hypoglycemia monitor blood sugar 3 times a day Durable Medical Equipment (Freestyle Lite Test Strips)??See Instructions for 90 Days Hypoglycemia to monitor blood sugars 3 times a day Eszopiclone (eszopiclone 2 mg oral tablet)??1 tab(s) By Mouth Daily at bedtime as needed NEEDED FOR SLEEP Multivitamin With Minerals (PreserVision AREDS 2 oral capsule)??1 capsule By Mouth 2 times a day Olopatadine Ophthalmic (Pataday)??Daily Omeprazole (omeprazole 10 mg oral enteric coated capsule)??1 capsule 10 Milligram By Mouth Daily sent to [facility] [phone] Tamsulosin (Flomax 0.4 mg oral capsule)??0.4 Milligram 1 capsule By Mouth Daily Tiotropium (Spiriva Respimat 1.25 mcg/inh inhalation aerosol)??2 puff(s) 2.5 Microgram Inhalation Daily j45.40 Medications Started None Medications Discontinued None Doses Changed None PCP Follow-Up/Heads-Up Maintain a blood sugar log with a glucometer. If??concerns for hypoglycemia -patient will need an outpatient endocrine??referral for??adrenal insufficiency and insulinoma workup Future Appointments Saturday 8:30 AM EDT ?? With: Argelia ECHOLS, Marlyn Young Where: [facility] [address] [place] [address]- Status: Pending Saturday 8:50 AM EDT ?? With: Ritchie CUI, Gil Langston [facility] [address] [place] [address]- Status: Pending Objective Assessment and Plan Seizure disorder, new onset Hypoglycemia Asthma Lactic acidosis Rhabdomyolysis ?? 73-year-old male with a history of diabetes, asthma, hyperlipidemia, and alcohol-related liver cirrhosis presented with a witnessed seizure episode, characterized by leftward eye deviation, right armrigidity in a claw-like position, foaming at the mouth, and generalized convulsions. His glucose level was initially 64, treated with D50, and he remained postictal. In the emergency room, his glucose riana to 125, while lactate decreased from 12 to 1.?? Elevated CK levels likely related to seizure activity.?? Encourage oral fluid intake. Laboratory results were largely unremarkable, including ammonia levels, ethanol, and Tylenol salicylate levels. Urine was clear, and preliminary blood cultures were negative, with final blood culture results pending. No evidence of infectious causes was found. ?? Workup included a non-acute MRI and a normal EEG. The differential diagnosis includes a first-time seizure possibly triggered by hypoglycemia.??Neurology recommendation was not to start antiepilepticdrugs (AEDs) at this time, as the seizure appeared provoked. If additional episodes occur, neurology will reassess. In accordance with [place] state law, the patient is prohibited from driving until six months seizure-free. He was advised to avoid activities that could be dangerous if he loses consciousness and to follow up with the epilepsy clinic. A 24-hour ambulatory EEG will be arrangedthrough the neurology clinic. ?? The patient reports occasionally feeling his blood sugar dropping, with hypoglycemia-like symptoms,though he has no known diabetes history. His blood sugars during hospitalization ranged from 102 to144, and his A1c is 5.4. The endocrinology team recommended the patient monitor his blood sugars athome with a glucometer. If recurrent hypoglycemia occurs, further evaluation for adrenal insufficiency or insulinoma will be needed.?? The plan, including follow-up with his PCP in 2 to 3 weeks and maintaining a blood sugar log, was discussed with the patient and his . Vital Signs?? Temperature: 97 DegF (10/12/24 09:23:00) Temperature Route: Oral (10/12/24 09:23:00) Pulse Rate: 59 bpm (10/12/24 09:23:00) Respiratory Rate: 18 br/min (10/12/24 09:23:00) Systolic Blood Pressure:??144 mm Hg??High (10/12/24 09:23:00) Diastolic Blood Pressure: 75 mm Hg (10/12/24 09:23:00) Blood pressure sites: Arm, left (10/12/24 09:23:00) Mean Arterial Pressure: 98 mm Hg (10/12/24 09:23:00) Pulse Pressure: 69 mm Hg (10/12/24 09:23:00) Oxygen Saturation: 96 % (10/12/24 09:23:00) Mode of Delivery (Oxygen): Room air (10/12/24 09:23:00) Early Warning Score: 5 (10/12/24 10:49:48) ? . Physical Exam General: Well nourished, appears stated age, anxious in moderate distress. HEENT: moist oral mucosa. PERRLA, EOMI.?? NECK: No JVD. No bruits. Heart: Regular rate. S1 and s2 heard. No murmer, rub or gallop. Lungs: Clear to auscultation. No wheeze, crackles or rhonchi Abdomen : Soft, nondistended, nontender and bowel sounds are active. ??No organomegaly.?? Extremities: No pedal edema, swelling or cyanosis. peripheral pulses 2+ Neurological : grossly non focal. AA0 X3.? Pscy: Mood and affect appropriate.? Consultants Neurology Endocrinology Pending Results Add On Lab Order ordered on 10/12/2024 Add On Lab Order ordered on 10/12/2024 Hold Lavender Top Tube ordered on 10/11/2024 Hold Lavender Tube (BB) ordered on 10/11/2024 Patient Education Titles WebMD Ignite Patient Education - Low Blood Sugar (Hypoglycemia)?? WebMD Ignite Patient Education - How Seizures Affect the Body?? WebMD Ignite Patient Education - Safety During a Seizure?? Follow-Up Appointments Added Follow Up ?Time Frame ?Comments Gil Dugan?1 to 2 weeks Patient Instructions -per [place] state law, no driving until 6 months seizure free. - follow up with epilepsy clinic.?Neurology will reach out with appointment. -outpatiet 24 hour ambulatory EEG to be set up by neuro clinic Post Discharge Care Discharge ?10/12/24 14:56:00 EST ?Order Comment:?? Discharge Prescriptions ?ePrescribed, 10/12/24 14:56:00 EST ?Order Comment:?? Home Health Face to Face ^HomeHealthFTF Results Discharge Labs BACTERIOLOGY Blood Culture Results Preliminary report ()?? 10/11/2024 18:47 Blood Culture Specimen Source BLOOD ()?? 10/11/2024 18:47 Blood Culture Isolate 1 Comment ()?? 10/11/2024 18:47 Blood Cult 2 Results Preliminary report ()?? 10/11/2024 18:47 Blood Culture 2 Specimen Source BLOOD ()?? 10/11/2024 18:47 Blood Culture 2 Isolate 1 Comment ()?? 10/11/2024 18:47 ?? BLOOD COUNT & DIFF WBC 8.2 k/mm3 ()?? 10/12/2024 09:09 RBC 4.14 m/mm3 (Low)?? 10/12/2024 09:09 Hgb 14.1 Gm/dL ()?? 10/12/2024 09:09 Hct 39.7 % (Low)?? 10/12/2024 09:09 MCV 95.9 femtoliters (High)?? 10/12/2024 09:09 MCH 34.1 pg (High)?? 10/12/2024 09:09 MCHC 35.5 Gm/dL ()?? 10/12/2024 09:09 Platelet Count 148 k/mm3 (Low)?? 10/12/2024 09:09 RDW-SD 46.3 femtoliters ()?? 10/12/2024 09:09 MPV 10.5 femtoliters ()?? 10/12/2024 09:09 Nucleated RBC (Automated) 0.0 #/100 WBC'S ()?? 10/12/2024 09:09 Abs. NRBC 0.0 k/mm3 ()?? 10/12/2024 09:09 Abs. Neut 5.0 k/mm3 ()?? 10/11/2024 18:47 Abs. Lymph 4.6 k/mm3 (High)?? 10/11/2024 18:47 Abs. Sebastian 0.9 k/mm3 ()?? 10/11/2024 18:47 Abs. Eo 0.4 k/mm3 ()?? 10/11/2024 18:47 Abs. Baso 0.1 k/mm3 ()?? 10/11/2024 18:47 Neut % 45.7 % ()?? 10/11/2024 18:47 Lymph % 42.0 % ()?? 10/11/2024 18:47 Sebastian % 7.8 % ()?? 10/11/2024 18:47 Eos % 3.3 % ()?? 10/11/2024 18:47 Baso % 0.6 % ()?? 10/11/2024 18:47 Hemoglobin (POC) POC Cartridge 14.6 Gm/dL ()?? 10/11/2024 19:01 Hematocrit (POC) POC Cartridge 43 % ()?? 10/11/2024 19:01 Imm Gran 0.6 % ()?? 10/11/2024 18:47 Abs. Imm Gran 0.1 k/mm3 ()?? 10/11/2024 18:47 ?? BLOOD GAS pH Venous (POC) POC Cartridge 7.34 ()?? 10/11/2024 19:01 pCO2 Venous (POC) POC Cartridge 30.3 mm Hg (Low)?? 10/11/2024 19:01 pO2 Venous (POC) POC Cartridge 40 mm Hg ()?? 10/11/2024 19:01 Est Bicarbonate (POC) POC Cartridge 16.4 mmol/L (Low)?? 10/11/2024 19:01 % O2 Sat Venous (POC) POC Cartridge 73 ()?? 10/11/2024 19:01 Base Excess (POC) POC Cartridge NEGATIVE 9 ()?? 10/11/2024 19:01 Specimen Type - Blood Gas VENOUS ()?? 10/11/2024 19:01 ? CARDIAC CK, Total 4452 units/L (High)?? 10/12/2024 09:09 Nt-Probnp 121 pg/mL ()?? 10/11/2024 18:47 High Sensitivity Troponin (HSTnT) 9 ng/L ()?? 10/11/2024 18:47 ? CHEM GENERAL Sodium 142 mmol/L ()?? 10/12/2024 09:09 Potassium 3.9 mmol/L ()?? 10/12/2024 09:09 Chloride 108 mmol/L (High)?? 10/12/2024 09:09 Bicarbonate Level 21 mmol/L (Low)?? 10/12/2024 09:09 Anion Gap 13 mmol/L ()?? 10/12/2024 09:09 Sodium (POC) POC Cartridge 137 mmol/L ()?? 10/11/2024 19:01 Potassium (POC) POC Cartridge 4.0 mmol/L ()?? 10/11/2024 19:01 Glucose Level 102 mg/dL (High)?? 10/12/2024 09:09 Glucose (POC) POC Cartridge 128 (High)?? 10/11/2024 19:01 Glucose, POC 125 mg/dL (High)?? 10/11/2024 18:38 Hemoglobin A1C (Monitoring) 5.4 % ()?? 10/12/2024 09:09 Beta Hydroxybutyrate 0.12 mmol/L ()?? 10/11/2024 18:47 BUN 9 mg/dL ()?? 10/12/2024 09:09 Creatinine-Blood 1.03 mg/dL ()?? 10/12/2024 09:09 Estimated GFR Creatinine 77 ML/MIN/1.73 M2 ()?? 10/12/2024 09:09 Calcium 9.0 mg/dL ()?? 10/11/2024 18:47 Ionized Calcium (POC) POC Cartridge 1.12 mmol/L (Low)?? 10/11/2024 19:01 Magnesium 2.4 mg/dL (High)?? 10/11/2024 18:47 Protein, Total 7.4 Gm/dL ()?? 10/11/2024 18:47 Albumin 4.3 Gm/dL ()?? 10/11/2024 18:47 AG Ratio 1.4 ()?? 10/11/2024 18:47 Alkaline Phosphatase 96 units/L ()?? 10/11/2024 18:47 Lipase, Serum/Plasma HEMOLYZED units/L ()?? 10/11/2024 18:47 AST (SGOT) 40 units/L ()?? 10/11/2024 18:47 ALT (SGPT) 32 units/L ()?? 10/11/2024 18:47 Bilirubin, Total 0.6 mg/dL ()?? 10/11/2024 18:47 Lactate 1.1 mmol/L ()?? 10/12/2024 09:09 ? ENDOCRINE/TUMOR MARKER TSH 2.31 uIU/mL ()?? 10/11/2024 18:47 Cortisol Level 11.0 ??g/dL ()?? 10/12/2024 09:09 ?? MISC. CHEMISTRY Ammonia, Venous 35 ??mole/L ()?? 10/11/2024 20:20 Hold Green Top SPECIMEN DISCARDED AFTER 1 WEEK ()?? 10/11/2024 20:20 ?? TOXICOLOGY/TDM Ethanol, Serum or Plasma NONE DETECTED mg/dL ()?? 10/11/2024 18:47 Salicylate Level <0.3 mg/dL (Low)?? 10/11/2024 18:47 Acetaminophen Level <5 mg/L (Low)?? 10/11/2024 18:47 ? UA/URINALYSIS Appear/Color, Urine COLORLESS ()?? 10/12/2024 00:18 Specific [place], Urine 1.018 ()?? 10/12/2024 00:18 pH, Urine 6.5 ()?? 10/12/2024 00:18 Albumin, Urine TRACE (Abnormal)?? 10/12/2024 00:18 Glucose, Urine NEGATIVE ()?? 10/12/2024 00:18 Ketones, Urine 1+ (Abnormal)?? 10/12/2024 00:18 Bilirubin, Urine NEGATIVE ()?? 10/12/2024 00:18 Hemoglobin, Urine TRACE (Abnormal)?? 10/12/2024 00:18 Nitrite, Urine NEGATIVE ()?? 10/12/2024 00:18 Leukocyte, Urine NEGATIVE ()?? 10/12/2024 00:18 Urobilinogen NORMAL mg/dL ()?? 10/12/2024 00:18 WBC's, Urine 1 /HPF ()?? 10/12/2024 00:18 RBC's, Urine 1 /HPF ()?? 10/12/2024 00:18 Hold Urine Culture Testing available 48 hours from time of collection. ()?? 10/12/2024 00:18 ? 45 minutes spent on discharge * Event Display: Discharge/Transfer Note Hospital Authored Date: [id number] * Chelsea Toney MD: PERFORM, SIGN, VERIFY Event Display: Patient Education Handout Authored Date: [id number] * Chelsea Toney MD: PERFORM Event Display: Patient Education Leaflets Authored Date: [id number] Low Blood Sugar (Hypoglycemia) ?? 41436 Low Blood Sugar (Hypoglycemia) Low blood sugar (hypoglycemia) means you don???t have enough sugar (glucose) in your bloodstream tohelp your body work. This may be a level of sugar lower than 70 mg/dL. But talk with your healthcare provider about your own target range. Ask what level is too low for you. Diabetes doesn???t cause low blood sugar. But some treatments for diabetes may raise the risk for it. These include oral medicines or insulin. Skipping or delaying meals can also increase your risk for hypoglycemia. In severe cases, low blood sugar may make you pass out or have a seizure. This is amedical emergency. So always treat low blood sugar right away as noted below. This is to prevent more serious problems. Safety note Always carry a source of fast-acting sugar and a snack in case you have low blood sugar. Examples include: ??? 4 glucose tablets ??? 1 tube of glucose gel ??? 1 packet of sugar or honey ??? 2 tablespoons ofraisins ?? Symptoms of low blood sugar If you have low blood sugar, you may have 1 or more of these symptoms: ??? Shakiness ??? Dizziness ??? Cold, clammy skin or sweating ??? Hunger ??? Headache ??? Nervous feeling ??? A hard, fast heartbeat ??? Weakness ??? Confusion or irritability ??? Trouble seeing or talking ??? Having nightmares or waking up confused or sweating ??? Numbness or tingling in the lips or tongue ?? What to do If you think you have low blood sugar:?? 1. Check your sugar. First, check your blood sugar. If it's too low (out of your target range), eator drink 15 to 20 grams of fast-acting sugar. This may be 3 to 4 glucose tablets, or 4 ounces (halfa cup) of fruit juice or regular (not diet) soda, or 1 tablespoon of honey. Don???t take more than this. If you do, your blood sugar may go too high. 2. Don???t have protein. Don't eat or drink things high in protein to treat low blood sugar. This includes milk, nuts, and meat. Protein may increaseyour insulin response. It may lower your blood sugar even more. 3. Check again. Wait 15 minutes. Then recheck your blood sugar if you can. If your blood sugar is still too low, repeat the steps aboveuntil your blood sugar is back to normal. 4. Eat a snack. When your blood sugar is back at target range, eat a snack or meal. 5. Get help if needed. If you still don???t feel well and your blood sugar is still low, have someone drive you to the emergency room. ?? Preventing low blood sugar Things you can do include the below:? If your diabetes needs a strict treatment plan,??eat meals and snacks at the same times each day. Don???t skip meals. If you have trouble paying for food, talk with your healthcare team for help.??? If your treatment plan lets you change when and what you eat, learn how to change the time and dose of your rapid-acting insulin to match.? Ask your healthcare provider if it's safe to drinkalcohol. But never drink on an empty stomach. Alcohol may keep you from feeling the first symptoms of low blood sugar. ??? Take your medicine at the prescribed times. ??? Always carry a source of fast-acting sugar and a snack when you???re away from home. If you have had repeated low blood sugar episodes: ??? You may not notice the symptoms of low bloodsugar until it gets to a dangerous level. Work with your provider for the best ways to safely manage your blood sugar. ??? Ask your healthcare provider if you can take less or different medicine. Many newer types of diabetes medicines have less risk of low blood sugar. ??? Talk with your provider about a continuous glucose monitor. This is a device that tracks your blood sugar. ??? Ask your provider if you should be prescribed a medicine called glucagon. Glucagon is a hormone that quickly raises blood sugar. It can reverse serious symptoms. It is available as an injection or as a powder that's put into the nose. Ask your healthcare provider which type of glucagon is best for you and how to use it. ?? Other safety tips Make sure to: ??? Carry a medical ID card or wear a medical alert bracelet or necklace. It should say that you have diabetes. It should say what to do if you pass out or have a seizure. ??? Teach your family, friends, and coworkers the signs of low blood sugar. Tell them what to do if your blood sugar falls very low and you can???t treat yourself. ??? Keep a glucagon emergency kit handy. Show your family, friends, and coworkers how and when to use it. Check it often. Replace the glucagon beforeit expires. ??? Talk with your healthcare team about other things you can do to prevent low blood sugar. These include using new ways of continuous glucose tracking. ?Important If you have??unexplained low blood sugar or have it several times, call your healthcare provider. ?? Last Reviewed Date: 2023 ?? 0487-0402 [employer]. All rights reserved. This information is not intended as a substitute for professional medical care. Always follow your healthcare professional's instructions. ?? * Viola Harvey MD, [place]: PERFORM Event Display: Patient Education Leaflets Authored Date: [id number] How Seizures Affect the Body ?? 36447 How Seizures Affect the Body The brain is your body???s control center. It manages everything from movement and balance to emotions and memory. When a seizure happens, some or all brain functions are affected for a short time. The brain sends signals The brain sends electrical signals all over your body. Signals sent from each part of your brain control a different body function. For instance, 1 part of your brain controls balance. Another part controls speech. A healthcare provider can record your brain signals. They use a test called an electroencephalogram (EEG). Normal EEG. ?? The brain during a seizure During a seizure, abnormal electrical signals occur in your brain. They disrupt its normal activity. The way this affects your body depends on 2 main things: ??? Where the seizure happens in your brain. For instance, a seizure in a part of your brain that controls movement (the motor cortex) might cause your arm or leg to jerk. ??? The spread of the seizure to other parts of the brain. A seizure that affects more of your brain may affect more of your body. ?? Types of seizures The types of seizures include: ??? Focal seizures. The abnormal electrical activity starts in 1 part of the brain. These used to be called partial seizures. ??? Generalized seizures. These seizures start on both sides of the brainat the same time. ??? Unknown onset. It isn't known if the seizure is focal or generalized. It may be hard to know which type until tests such as an EEG are done. ??? Focal to bilateral seizure. A seizure starts in 1 side or part of the brain (focal). Then it spreads to both sides. Partial seizure EEG. Generalized seizure EEG. ?? Focal seizures Focal seizures come in different types. The type depends on any change in awareness. They are: ??? Focal aware. The person having a seizure is awake and aware. They may be unable to talk during the seizure. ??? Focal impaired awareness. People with this type of seizure will have short-term loss of awareness. This can be very brief (a few seconds). Or it may be much longer. This used to be known as a complex partial seizure. ??? Awareness unknown. It is not known if the person's awareness is affected or not. Focal seizures also come in types that describe movements: ??? Focal motor seizure. The focal seizure causes abnormal movements. These can include twitching, jerking, or stiffening of a body part. Or they can be things like licking lips, rubbing hands, walking, or running. ??? Focal non-motor seizure. These don't cause movements. But the person may have vision changes, thoughts, or feelings from the seizure. ?? Generalized seizures There are 2 kinds of generalized seizures: ??? Generalized motor seizure. A seizure happens on bothsides of the brain. It causes movements such as stiffening or jerking. It's also called a tonic-clonic seizure. ??? Generalized non-motor seizure. The seizure that affects awareness. It doesn't causemotor symptoms. Some people will have minor movements that repeat. These can include blinking or staring. This is also called an absence seizure. ?? Other effects of seizures on your body After a generalized motor seizure, your muscles may feel sore when you wake up. Some people bite their tongue during a seizure. Some lose control of their bladder or bowels (incontinence). You may besweating and have changes in your skin color. If you have seizures in your sleep, you may only knowbecause you feel sore when you wake up. Or you may find you had incontinence while asleep. Seizures can affect your heart rate, blood pressure, or other vital signs. These changes are often short-term (temporary). They get better after the seizure stops. During a seizure, brain cells can be injured. This can often happen with longer seizures. For these reasons, it's important to have good control of seizures. Seizures that affect your movements or awareness can pose a danger. When a seizure affects awareness, you may not be able to focus on what you're doing. You may lose control of a vehicle or heavy machinery. Motor seizures (generalized or focal) can lead to injury. With a generalized motor seizure, you canfall and be injured. The motor movements with focal or generalized seizures can cause injury if you're near something dangerous, like a hot stove or a sharp object. People with seizures that affect awareness or motor function need to take care to prevent injuries.Your ability to drive may be affected. Your driving may be limited. This is based on your provider's advice and local laws. You may need not to swim or shower alone. This is because of the risk of drowning during a seizure. Being up high, such as on a ladder, can lead to serious injury if you have a seizure. Your provider can help you learn what to do to stay safe. If you have a seizure disorder, wear a medical alert bracelet or necklace. You may also want to carry a list of your seizure medicines. This could be on paper or in your cellphone. If your disorder is unstable, include the medical management used to treat emergencies. ?? Last Reviewed Date: 2023 ?? [employer]. All rights reserved. This information is not intended as a substitute for professional medical care. Always follow your healthcare professional's instructions. ?? * Viola Harvey MD, [facility]: PERFORM Event Display: Patient Education Leaflets Authored Date: [id number] Safety During a Seizure ?? 35992 Safety During a Seizure Safety during a seizure Let family and friends know what to expect and how to react when you??have a seizure. This helps keep them calm and you safe. All seizures should be treated with care. But seizures that cause you to lose consciousness (tonic-clonic seizures) need more attention. Think about wearing a medical alert bracelet in case you are not around family members. This can alert other people to your condition and provide any special instructions. Here are some tips for loved ones. ?? What to know Seizures typically last less than 3 minutes. But it will feel like it's longer.??People recover safely from most seizures. During a tonic-clonic seizure, the person may appear to stop breathing or turn slightly blue. This may be scary for you, but try to stay calm. Afterward, the person may be tired, confused, and achy. They may need to sleep for several hours to fully recover. ?? What to do During any seizure, stay with the person??until it's over. Note the time when the seizure starts and ends.??Don???t try to stop the seizure. During a tonic- clonic seizure, also do the following: ??? Move hard or sharp objects out of the way. ??? Lay the person on a flat surface and turn them on their side. ??? Place a flat, soft object under their head. ??? Don???t try to restrain the person. Both of you could get hurt. ??? Don???t put anything in the person???s mouth. The person can???t swallow their tongue, and you risk breaking their teeth or being bitten. ??? Don???t give the person medicines during a seizure, unless you???ve been trained by a healthcare provider. ??? Speak quietlyto the person as they recover. There is no need to call 911 if the person has a well-known cause of the seizures (such as epilepsy) and the seizure is very typical.??If you are not sure or the person's condition is not known, [id number]. ?? Call 911 Call 911 if any of these occur: ??? The seizure lasts longer than 5 minutes ??? The person isn't conscious between 2 seizures ??? Several seizures happen in a row These things could mean the person has status epilepticus. This is a medical emergency. Hospital treatment for this condition includes benzodiazepine medicines given by IV (intravenous). A form of this medicine (a rectal diazepam gel) may be prescribed for at-home use. Other causes of seizures and situations that need immediate medical care include:? The person has diabetes ??? The person has a brain??infection ??? The person has heat exhaustion ??? The personis ? Poisoning is known or suspected ??? The person has low blood sugar ??? A seizure happens after or during a high fever ??? A head injury immediately after or within a few days after the injury happened ??? Multiple seizures happen in a short period of time ??? The person stops breathing ??? A seizure that happens in water ??? The person hit their head during a seizure and becomesdifficult to wake up, is vomiting,??or complains of blurry vision ??? It's the first time a seizure happens ??? It's different??than the typical seizures??for that person ??? The person is difficult to arouse after the seizure ??? Alcohol or drug abuse? Alcohol or drug withdrawal ?? Last Reviewed Date: 2022 ?? [employer]. All rights reserved. This information is not intended as a substitute for professional medical care. Always follow your healthcare professional's instructions. ?? Patient Care team information Care Team Personnel Name: Ritchie CUI, Gil Langston Position: [facility] Physician - Primary Care Member Role: PCP Address: [address] [place] [id number] Telecom: Care Team Related Persons Name: NADINE BARRETT Insurance Providers Guarantor name: JOSÉ BARRETT Health Plan Information #: 3 Payer: MEDICARE PART B OUTPT Member Number: [id number] Policy Number: NA Group Number: NA Health Plan Information #: 1 Payer: [employer] Member Number: [id number] Policy Number: NA Group Number: [id number] Health Plan Information #: 2 Payer: MEDICARE A INPT 25 Member Number: [id number] Policy Number: NA Group Number: NA
--- OUTSIDE RECORDS SUMMARY | 2024-10-19 16:00 | XMS_ITS | Clinical Summary ---
Author Organization [address] [facility] Address [address] [place] [address] Phone Care Team Providers Care Manager Business Process Name Role Phone Gil Dugan MD Primary Care Provider [phone]- [phone] Encounters Date Type Department Care Team Description 09/07/2024 Telephone Gastroenterology - [address] [facility] [address] [place] [phone] Martin Funez MD 07/24/[address] [facility] Lab [address] [facility] [place] [phone] Juan Escobar PA Benign essential microscopic hematuria from Last 3 Months Social History Tobacco Use Types Packs/Day Years Used Date Smoking Tobacco: Never Assessed Sex and Gender Information Value Date Recorded Sex Assigned at Male 06/05/2024 11:19 PM EDT Legal Sex Male 6:10 PM EST Gender Identity Male 06/05/2024 11:19 PM EDT Sexual Orientation Straight 06/05/2024 11 :19 PM EDT Plan of Treatment Upcoming Encounters Date Type Department Care Team (Late st Contact Info) Description 11/11/2024 8:00 AM EDT Office Visit Gastroenterology - [address] [facility] [address] [place] [phone] Martin Funez MD [address] [place] [id number] Health Maintenance Due Date Last Done Comments DTaP,Tdap,and Td Vaccines (1 - Tdap) 10/27/1970 Pneumococcal Vaccine: 50+ Ye ars (1 of 2 - PCV) 10/27/1970 Zoster Vaccines (1 of 2) 10/27/2001 [...] patient's age to complete this topic Meningococcal B Vacine Aged Out No lo nger eligible based on patient's age to complete this topic RSV Immunization Patients Un syl 20 months Aged Out No longer eligible b ased on patient's age to complete this topic Varicella Vaccines Aged Out No longer eligible based on patient's age to complete this topic Insurance MEDICARE [facility] MEDICARE ADVANTAGE Care Teams Manager Business Process Relationship Specialty Start Date End Date Gil Dugan MD [facility] [address]ate [address] [place] [id number] PCP - General Family Medicine 09/07/24
== END 2024-10-19 14:29 | disposition home or self-care (01) ==
PROVIDERS: Visit Provider Internal Medicine Cardiovascular Disease
DX: I25.10 Atherosclerotic heart disease of native coronary artery without angina pectoris (principal); I77.89 Other specified disorders of arteries and arterioles; I49.3 Ventricular premature depolarization; Z01.810 Encounter for preprocedural cardiovascular examination
CPT/HCPCS: 99214

== ENCOUNTER → 2024-10-19 13:34 | Outpatient (BNVA) | payer BC, MEDICARE, SELFPAY | PROVIDERS: Visit Provider Internal Medicine Cardiovascular Disease ==